=== PATIENT | female | born 1995 | race Caucasian/White ===

== ENCOUNTER 2019-11-16 17:13 | Emergency (ER) | payer SELFPAY ==
[2019-11-16 17:35] VITALS: BP 125/95; PULSE 100; RESP 18; TEMP 37.2; O2SAT 100; BMI 25.9
--- NOTE | 2019-11-16 17:53 | XRR_ITS ---
PROCEDURE INFORMATION: Exam: XR Chest, 1 View Exam date and time: 11/16/2019 5:55 PM Age: 24 years old Clinical indication: Cough and fever; Additional info: Sore throat, fever TECHNIQUE: Imaging protocol: XR of the chest Views: 1 view. COMPARISON: No relevant prior studies available. FINDINGS: Lungs: Unremarkable. No consolidation. Pleural space: Unremarkable. No pleural effusion. No pneumothorax. Heart/Mediastinum: Unremarkable. No cardiomegaly. Bones/joints: Unremarkable. XR/XR chest 1V portable [id number] IMPRESSION: No acute findings.
--- NOTE | 2019-11-16 17:56 | W.ED.GENADLT ---
HPI - General Adult General: Chief complaint: General Medical Stated complaint: eye pain, sore throat, fever Time Seen by Provider: 11/16/19 17:45 History of Present Illness: HPI narrative: Patient with history of fever up to 101 last couple days sore throat left eye redness and itching. Has had some night sweats and body aches in the evening. 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 Been doing this delivery last couple weeks at least. Has a history of eye allergies in the past and seasonal allergies. Has been treated for high blood pressure during . Not currently on medications MD complaint: Flulike symptoms. Eye allergy Onset (ago): day(s) Location: eyes Severity: mild Quality: other (Itching left eye) Associated symptoms: Reports fevers/chills and malaise; Deny chest pain, dyspnea, headache(s), nausea, rash or vomiting Review of Systems Const: Reports: fever and malaise Eyes: Reports: eye redness (Left with clear discharge and itching); Denies: change in vision or blurry vision ENMT: Denies: throat pain or nasal congestion Card: Denies: chest pain or shortness of breath on exertion Resp: Denies: shortness of breath, productive cough or non-productive cough GI: Denies: abdominal pain, nausea or vomiting Musc: Reports: extremity pain (Muscle aches) Skin/Breast: Denies: rash Neuro: Denies: headache Psych: Denies: anxiety or depression Epifanio/Lymph: Denies: easy bruising PFSH ED PFSH: Social History Smoking and tobacco status: never smoked Physical Exam Const: COMMON NORMALS: no apparent distress, average body habitus and oriented x3 HENMT: COMMON NORMALS: normocephalic HEAD & SCALP: normal to inspection and normocephalic FACE & SINUS: normal facial exam Eye: GENERAL EYE: normal appearance of both eyes CONJUNCTIVA: Yes conjunctiva abnormal positive left conjunctival injection Neck/C-Spine: COMMON NORMALS: no JVD Chest: COMMONS NORMALS: inspection of chest normal Resp: COMMON NORMALS: normal respiratory effort and clear to auscultation bilaterally AUSCULTATION: clear to auscultation bilaterally Cardio: COMMON NORMALS: no JVD, regular rate and regular rhythm RATE: regular rate RHYTHM: regular rhythm GI: COMMON NORMALS: normal to inspection, nondistended, normoactive bowel sounds Extremity: COMMON NORMALS: normal to inspection and full ROM Neuro: COMMON NORMALS: oriented x3 Course Vital Signs: Vital signs: Vital Signs Temperature 98.9 F 11/16/19 17:35 Pulse Rate 100 11/16/19 17:35 Respiratory Rate 18 11/16/19 17:35 Blood Pressure 125/95 11/16/19 17:35 Pulse Oximetry 100 11/16/19 17:35 [facility] - General Adult Lab Data: Labs: Lab Results 11/16/19 Range/Units 18:13 WBC 9.0 (4.0-10.0) 10^3/ uL RBC 4.34 (4.1-5.3) 10^6/u L Hgb 12.2 (11.5-15.3) g/dL Hct 39.1 (37.0-47.0) % MCV 90.1 (81-99) fL MCH 28.1 (28.0-34.0) pg MCHC 31.2 (30.0-36.0) g/dL RDW 12.9 (12.1-15.1) % Plt Count 289 (130-400) 10^3/c mm MPV 9.2 (7.4-10.4) fL Neut % (Auto) 73.7 % Lymph % (Auto) 12.3 % [place] % (Auto) 12.5 % Eos % (Auto) 1.1 % Baso % (Auto) 0.2 % Neut # (Auto) 6.6 (1.8-7.7) 10^3/u L Lymph # (Auto) 1.1 (0.8-4.8) 10^3/u L [place] # (Auto) 1.1 H (0.2-0.9) 10^3/u L Eos # (Auto) 0.1 (0.0-0.8) 10^3/u L Baso # (Auto) 0.0 (0.0-0.1) 10^3/u L Nucleated RBC % (a uto) 0 % Nucleated RBCs # 0.0 /100WBC Discharge Plan Discharge Prescriptions: No Action No Known Home Medications RF: 0 Coding Level of Care Code ED 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
[2019-11-16] MEDS: prednisoLONE 1% Op Susp 5 mL Btl 1 DROP EYE-LEFT (18:15)
[2019-11-16 18:22] LABS: Basophils % 0.2 %; Eosinophils # 0.1 10^3/uL (0.0-0.8); Eosinophils % 1.1 %; Hematocrit 39.1 % (37.0-47.0); Hemoglobin 12.2 g/dL (11.5-15.3); Lymphocytes # 1.1 10^3/uL (0.8-4.8); Lymphocytes % 12.3 %; Mean Corpuscular HGB Conc 31.2 g/dL (30.0-36.0); Mean Corpuscular Hemoglobin 28.1 pg (28.0-34.0); Mean Corpuscular Volume 90.1 fL (81-99); Mean Platelet Volume 9.2 fL (7.4-10.4); Monocytes # 1.1 10^3/uL (0.2-0.9); Monocytes % 12.5 %; Neutrophils # 6.6 10^3/uL (1.8-7.7); Neutrophils % 73.7 %; Nucleated Red Blood Cells % 0 %; Platelet Count 289 10^3/cmm (130-400); Red Blood Count 4.34 10^6/uL (4.1-5.3); Red Cell Distribution Width 12.9 % (12.1-15.1)
[2019-11-16 18:46] LABS: Alanine Aminotransferase 15 U/L (0-33); Albumin Level 4.1 g/dL (3.5-5.2); Alkaline Phosphatase 66 IU/L (35-105); Anion Gap 14.8 (5-19); Aspartate Amino Transferase 16 U/L (0-32); Blood Urea Nitrogen 14 mg/dL (6-20); Calcium 9.3 mg/dL (8.5-10.5); Carbon Dioxide 25 mmol/L (22-29); Chloride 96 mmol/L (98-107); Globulin 3.6 g/dL (1.3-4.6); Glomerular Filtration Rate 120.8 mL/min (90-130); Glucose 89 mg/dL (65-115); Osmolality Calculated 270 mOsm/kg (285-295); Potassium 3.8 mmol/L (3.5-5.1); Sodium 132 mmol/L (136-145); Total Bilirubin 0.3 mg/dL (0.15-1.2); Total Protein 7.7 g/dL (6.6-8.7)
[2019-11-16 18:58] LABS: Influenza A by IFA Negative (Negative); Influenza B by IFA Negative (Negative)
--- NOTE | 2019-11-16 18:59 | PC.NURSE ---
REPORT RECEIVED FROM MERT MENA AND CARE TRANSFERRED TO MERT RANDLE
[2019-11-16 19:39] VITALS: BP 126/88; PULSE 106; RESP 16; O2SAT 97
== END 2019-11-16 19:35 | disposition home or self-care (01) ==
PROVIDERS: Emergency Provider Nurse Practitioner Family; Family Provider Family Medicine; PCP Family Medicine
DX: R50.9 Fever, unspecified (principal); J02.9 Acute pharyngitis, unspecified; H57.12 Ocular pain, left eye; H57.89 Other specified disorders of eye and adnexa; R53.81 Other malaise
CPT/HCPCS: 12345; 71045; 80053; 85025; 87635; 87804; 99282; 99283

== ENCOUNTER 2019-12-07 00:59 | Observation (INO) | payer SELFPAY ==
[2019-12-07] VITALS (24 sets, daily range): BP systolic 100–161; BP diastolic 49–84; PULSE 73–144; RESP 15–20; TEMP 36.6; O2SAT 85–100; BMI 27.4
--- NOTE | 2019-12-07 01:15 | XRR_ITS ---
PROCEDURE INFORMATION: Exam: XR Chest, 1 View Exam date and time: 12/07/2019 2:33 AM Age: 24 years old Clinical indication: Tachypnea; Additional info: Tachypnea and on 2l nasal cannula TECHNIQUE: Imaging protocol: XR of the chest Views: 1 view. COMPARISON: CR (CHEST, ) 11/16/2019 6:18 PM FINDINGS: Lungs: There are increased patchy and linear opacities present in the lower hemithoraces, left prominent than right likely representing atelectasis although infiltrates and basilar pneumonitis cannot be excluded. Pleural space: Unremarkable. No pleural effusion. No pneumothorax. Heart/Mediastinum: Unremarkable. No cardiomegaly. Bones/joints: Unremarkable. XR/XR chest 1V portable [id number] IMPRESSION: Increased patchy linear opacities in the lower hemithoraces, left more prominent than right suggests bilateral basilar atelectasis and/or pneumonitis
--- NOTE | 2019-12-07 01:15 | CTR_ITS ---
PROCEDURE INFORMATION: Exam: CT Head Without Contrast Exam date and time: 12/07/2019 1:17 AM Age: 24 years old Clinical indication: Other: Seizure; Additional info: Possible seizure TECHNIQUE: Imaging protocol: Computed tomography of the head without contrast. Total DLP: 812.57 mGy-cm Radiation optimization: All CT scans at this facility use at least one of these dose optimization techniques: automated exposure control; mA and/or kV adjustment per patient size (includes targeted exams where dose is matched to clinical indication); or iterative reconstruction. COMPARISON: No relevant prior studies available. FINDINGS: Brain: Normal. No hemorrhage. Unremarkable white matter. No mass effect. Ventricles: Normal. No ventriculomegaly. Bones/joints: Unremarkable. No acute fracture. Sinuses: Visualized sinuses are unremarkable. No fluid levels. Mastoid air cells: Visualized mastoid air cells are well aerated. Soft tissues: Unremarkable. CT/CT head wo con* [id number] IMPRESSION: No acute intracranial abnormality. Radiation Dose CTDIVOL = (mGy): DLP = 812.57 (mGy-cm)
[2019-12-07] MEDS: LORazepam 2 mg/mL INJ 1 mL (01:30)
[2019-12-07] MEDS: sodium chloride 0.9% 1,000 ML 999 ML IV (01:46)
[2019-12-07 01:47] LABS: Bacteria Urine TRACE; Bilirubin Urine Neg (NEGATIVE); Blood Urine Neg (Negative); Glucose Urine UA Norm (Normal); Ketones Urine Negative (Negative); Leukocyte Esterase Urine Negative (Negative); Nitrate Urine Negative (Negative); Protein Urine Neg (Negative); RBC Urine RARE /hpf (0-2); Squamous Epithelial Cell Urine 0-4 (0-5); Urine Appearance Clear (CLEAR); Urine Color Yellow (Yellow); Urobilinogen Urine Norm (Negative); WBC Urine RARE /hpf (0-5); pH Urine 5 (5-7)
--- NOTE | 2019-12-07 01:47 | PC.NURSE ---
seizure pads on bed when pt got to room
[2019-12-07 01:52] LABS: Amphetamines Screen Urine Negative (Negative); Barbiturates Screen Urine Negative (Negative); Benzodiazepines Screen Urine Negative (Negative); Cocaine Screen Urine Negative (Negative); Opiate Screen Urine Negative (Negative); PCP Screen Urine Negative (Negative); THC Screen Urine Negative (Negative)
[2019-12-07 01:53] LABS: ABG PCO2 41.5 mmHg (35-45); ABG PH Result 7.37 (7.35-7.45); Arterial Blood Gas Hematocrit 39.2 % (37-47); Base Excess ABG -1.7 mmol/L (-2.0-2.0); Blood Gas Sample Site Brachial, left; Blood Gas Sample Type Arterial; HCO3 ABG 23.7 mmol/L (22-26); Oxygen Device ROOM AIR; PO2 ABG 85.7 mmHg (80.0-100.0)
--- NOTE | 2019-12-07 02:06 | W.ED.SEIZURE ---
HPI - Seizure General: Chief Complaint: Seizure Stated Complaint: SEIZURE Time Seen by Provider: 12/07/19 01:01 History of Present Illness: Seizure History: Yes Place: Home Review of Systems General: Reports: ROS unobtainable due to mental status PFSH ED PFSH: Social History Smoking and tobacco status: unknown if ever smoked Physical Exam Const: GENERAL APPEARANCE: well developed HENMT: COMMON NORMALS: normocephalic, external ears normal and external nose normal HEAD & SCALP: normocephalic FACE & SINUS: normal facial exam NOSE: external nose normal and no nasal discharge EXTERNAL EAR: Yes external ears normal MOUTH: tongue normal TEETH & GINGIVA: no abnormal tooth and associated gingiva THROAT: posterior oropharynx normal; no peritonsillar mass Eye: COMMON NORMALS: PERRL, EOMs intact bilaterally and conjunctivae normal EYELID: eyelids normal CONJUNCTIVA: Yes conjunctivae normal PUPIL: Yes PERRL Neck/C-Spine: COMMON NORMALS: full ROM GENERAL: No tracheal deviation Chest: COMMONS NORMALS: inspection of chest normal CHEST: No tenderness Resp: COMMON NORMALS: clear to auscultation bilaterally EFFORT & INSPECTION: No tachypneic, No respiratory distress, No retractions, No uses accessory muscles and No tracheal deviation AUSCULTATION: clear to auscultation bilaterally, no rhonchi, no wheezes and lung sounds not diminished Cardio: COMMON NORMALS: regular rate and regular rhythm RATE: regular rate and tachycardic RHYTHM: regular rhythm HEART SOUNDS: no murmurs PERIPHERAL PULSES: radial pulses present GI: INSPECTION: No abdominal distension AUSCULTATION: No hyperactive bowel sounds and No hypoactive bowel sounds PALPATION: No guarding and No rigid PERCUSSION: no dullness to percussion and no tympanic to percussion Neuro: ROB COMA SCALE: document GCS findings Rob coma scale eye opening: Spontaneous [place] coma scale verbal response: None Rob coma scale motor response: Localising Rob coma scale total score: 10 CRANIAL NERVES: Yes CN normal except as noted MOTOR EXAM: muscle tone normal throughout and other (Symmetrical movements.) Psych: APPEARANCE: Yes grossly normal ACTIVITY/MOTOR BEHAVIOR: Yes restless SPEECH: Yes minimal MEMORY/COGNITION: Yes memory grossly impaired Skin: COMMON NORMALS: no rashes or lesions noted GENERAL SKIN EXAM: no rashes or lesions noted Course Consultations: Consultation #1: Gissell Vital Signs: Vital signs: Vital Signs Temperature 97.8 F 12/07/19 01:07 Pulse Rate 144 H 12/07/19 03:00 Respiratory Rate 16 12/07/19 02:09 Blood Pressure 100/49 12/07/19 04:15 Pulse Oximetry 95 12/07/19 04:15 MDM - Seizure MDM Narrative: Medical decision making narrative: 24-year-old female presents with altered mental status, seizure like activity after drinking vodka, and possibly smoking and illicit substance earlier. She received 2.5 mg of Versed in route to the hospital. She received 2 mg IV Ativan on her arrival here due to symptoms of rigidity, arching the back, rolling the eyes, and drawing extremities to the center. She has not exhibited these symptoms in quite some time. She has however been agitated, pulled out 3 IVs, and has not come back to baseline. Her alcohol level is only 114. Her head CT is negative. Her urinalysis is negative for infection, and UDS is negative. Her labs are otherwise benign. There are no oral lesions. She did not lose control of her bladder. She remained somewhat obtunded, but is maintaining her airway with good vital signs. Initially, she was very tachycardic in the 140s. Her heart rate is below 100 now. She gives symptoms and history indicative of a possible synthetic marijuana ingestion such as K2, but again has not come back to baseline. She will go to the ICU for further monitoring, treatment. She was given a loading dose of Keppra here in the ER. She does not, however, exhibit signs of status epilepticus. Lab Data: Labs: Lab Results 12/07/19 12/07/19 12/07/19 Range/Units 01:35 01:35 01:42 WBC (4.0-10.0) 10^3/ uL RBC (4.1-5.3) 10^6/u L Hgb (11.5-15.3) g/dL Hct (37.0-47.0) % MCV (81-99) fL MCH (28.0-34.0) pg MCHC (30.0-36.0) g/dL RDW (12.1-15.1) % Plt Count (130-400) 10^3/c mm MPV (7.4-10.4) fL Neut % (Auto) % Lymph % (Auto) % [place] % (Auto) % Eos % (Auto) % Baso % (Auto) % Neut # (Auto) (1.8-7.7) 10^3/u L Lymph # (Auto) (0.8-4.8) 10^3/u L [place] # (Auto) (0.2-0.9) 10^3/u L Eos # (Auto) (0.0-0.8) 10^3/u L Baso # (Auto) (0.0-0.1) 10^3/u L Nucleated RBC % (a uto) % Nucleated RBCs # /100WBC Specimen Type Arterial Sample Site Brachial, left ABG pH 7.37 (7.35-7.45) ABG pCO2 41.5 (35-45) mmHg ABG pO2 85.7 (80.0-100.0) mmH g ABG HCO3 23.7 (22-26) mmol/L ABG Base Excess -1.7 (-2.0-2.0) mmol/ L [place] Test N/a Hematocrit 39.2 (37-47) % O2 Delivery Device Room air Director Supply Chain ID [email or web address] Sodium (136-145) mmol/L Potassium (3.5-5.1) mmol/L Chloride (98-107) mmol/L Carbon Dioxide (22-29) mmol/L Anion Gap (5-19) BUN (6-20) mg/dL Creatinine (0.5-0.9) mg/dL GFR Calculation (90-130) mL/min Glucose (65-115) mg/dL Calculated Osmolal ity (285-295) mOsm/k g Calcium (8.5-10.5) mg/dL Phosphorus (2.5-4.5) mg/dL Magnesium (1.7-2.3) mg/dL Total Bilirubin (0.15-1.2) mg/dL AST (0-32) U/L ALT (0-33) U/L Alkaline Phosphata se (35-105) IU/L Creatine Kinase (26-192) U/L Total Protein (6.6-8.7) g/dL Albumin (3.5-5.2) g/dL Globulin (1.3-4.6) g/dL HCG, Qual (Negative) Urine Color Yellow (Yellow) Urine Appearance Clear (CLEAR) Urine pH 5 (5-7) Ur Specific Gravit y 1.010 (1.005-1.030) Urine Protein Neg (Negative) Urine Glucose (UA) Norm (Normal) Urine Ketones Negative (Negative) Urine Blood Neg (Negative) Urine Nitrate Negative (Negative) Urine Bilirubin Neg (NEGATIVE) Urine Urobilinogen Norm (Negative) mg/dL Ur Leukocyte Brittany ase Negative (Negative) Urine RBC Rare (0-2) /hpf Urine WBC Rare (0-5) /hpf Ur Squamous Epith Cells 0-4 H (0-5) Urine Bacteria Trace (NONE) Urine Opiates Scre en Negative (Negative) ng/mL Ur Barbiturates Sc reen Negative (Negative) ng/mL Ur Phencyclidine S crn Negative (Negative) ng/mL Ur Amphetamines Sc reen Negative (Negative) ng/mL U Benzodiazepines Scrn Negative (Negative) ng/mL Urine Cocaine Scre en Negative (Negative) ng/mL U Marijuana (THC) Screen Negative (Negative) ng/mL Ethyl Alcohol (0-10) mg/dL 12/07/19 12/07/19 12/07/19 Range/Units 02:05 02:05 02:05 WBC 6.6 (4.0-10.0) 10^3/ uL RBC 4.50 (4.1-5.3) 10^6/u L Hgb 12.6 (11.5-15.3) g/dL Hct 39.0 (37.0-47.0) % MCV 86.7 (81-99) fL MCH 28.0 (28.0-34.0) pg MCHC 32.3 (30.0-36.0) g/dL RDW 12.8 (12.1-15.1) % Plt Count 404 H (130-400) 10^3/c mm MPV 9.3 (7.4-10.4) fL Neut % (Auto) 62.5 % Lymph % (Auto) 28.5 % [place] % (Auto) 7.3 % Eos % (Auto) 1.2 % Baso % (Auto) 0.3 % Neut # (Auto) 4.1 (1.8-7.7) 10^3/u L Lymph # (Auto) 1.9 (0.8-4.8) 10^3/u L [place] # (Auto) 0.5 (0.2-0.9) 10^3/u L Eos # (Auto) 0.1 (0.0-0.8) 10^3/u L Baso # (Auto) 0.0 (0.0-0.1) 10^3/u L Nucleated RBC % (a uto) 0 % Nucleated RBCs # 0.0 /100WBC Specimen Type Sample Site ABG pH (7.35-7.45) ABG pCO2 (35-45) mmHg ABG pO2 (80.0-100.0) mmH g ABG HCO3 (22-26) mmol/L ABG Base Excess (-2.0-2.0) mmol/ L [place] Test Hematocrit (37-47) % O2 Delivery Device Director Supply Chain ID Sodium 138 (136-145) mmol/L Potassium 3.7 (3.5-5.1) mmol/L Chloride 101 (98-107) mmol/L Carbon Dioxide 24 (22-29) mmol/L Anion Gap 16.7 (5-19) BUN 11 (6-20) mg/dL Creatinine 0.6 (0.5-0.9) mg/dL GFR Calculation 120.8 (90-130) mL/min Glucose 113 (65-115) mg/dL Calculated Osmolal ity 283 L (285-295) mOsm/k g Calcium 9.1 (8.5-10.5) mg/dL Phosphorus 3.5 (2.5-4.5) mg/dL Magnesium 2.0 (1.7-2.3) mg/dL Total Bilirubin 0.2 (0.15-1.2) mg/dL AST 20 (0-32) U/L ALT 11 (0-33) U/L Alkaline Phosphata se 67 (35-105) IU/L Creatine Kinase 151 (26-192) U/L Total Protein 8.0 (6.6-8.7) g/dL Albumin 4.6 (3.5-5.2) g/dL Globulin 3.4 (1.3-4.6) g/dL HCG, Qual Negative (Negative) Urine Color (Yellow) Urine Appearance (CLEAR) Urine pH (5-7) Ur Specific Gravit y (1.005-1.030) Urine Protein (Negative) Urine Glucose (UA) (Normal) Urine Ketones (Negative) Urine Blood (Negative) Urine Nitrate (Negative) Urine Bilirubin (NEGATIVE) Urine Urobilinogen (Negative) mg/dL Ur Leukocyte Brittany ase (Negative) Urine RBC (0-2) /hpf Urine WBC (0-5) /hpf Ur Squamous Epith Cells (0-5) Urine Bacteria (NONE) Urine Opiates Scre en (Negative) ng/mL Ur Barbiturates Sc reen (Negative) ng/mL Ur Phencyclidine S crn (Negative) ng/mL Ur Amphetamines Sc reen (Negative) ng/mL U Benzodiazepines Scrn (Negative) ng/mL Urine Cocaine Scre en (Negative) ng/mL U Marijuana (THC) Screen (Negative) ng/mL Ethyl Alcohol 114 H (0-10) mg/dL Discharge Plan Discharge Prescriptions: No Action No Known Home Medications RF: 0 Coding Level of Care Code ED 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
[2019-12-07 02:14] LABS: Basophils % 0.3 %; Eosinophils # 0.1 10^3/uL (0.0-0.8); Eosinophils % 1.2 %; Hemoglobin 12.6 g/dL (11.5-15.3); Lymphocytes # 1.9 10^3/uL (0.8-4.8); Lymphocytes % 28.5 %; Mean Corpuscular HGB Conc 32.3 g/dL (30.0-36.0); Mean Corpuscular Volume 86.7 fL (81-99); Mean Platelet Volume 9.3 fL (7.4-10.4); Monocytes # 0.5 10^3/uL (0.2-0.9); Monocytes % 7.3 %; Neutrophils # 4.1 10^3/uL (1.8-7.7); Neutrophils % 62.5 %; Nucleated Red Blood Cells % 0 %; Platelet Count 404 10^3/cmm (130-400); Red Cell Distribution Width 12.8 % (12.1-15.1); White Blood Count 6.6 10^3/uL (4.0-10.0)
[2019-12-07 02:22] LABS: HCG, Serum Qual Negative (Negative)
[2019-12-07 02:28] LABS: Alanine Aminotransferase 11 U/L (0-33); Albumin Level 4.6 g/dL (3.5-5.2); Alcohol Level 114 mg/dL (0-10); Alkaline Phosphatase 67 IU/L (35-105); Anion Gap 16.7 (5-19); Aspartate Amino Transferase 20 U/L (0-32); Blood Urea Nitrogen 11 mg/dL (6-20); Calcium 9.1 mg/dL (8.5-10.5); Carbon Dioxide 24 mmol/L (22-29); Chloride 101 mmol/L (98-107); Creatine Phosphokinase 151 U/L (26-192); Globulin 3.4 g/dL (1.3-4.6); Glomerular Filtration Rate 120.8 mL/min (90-130); Glucose 113 mg/dL (65-115); Osmolality Calculated 283 mOsm/kg (285-295); Phosphorus 3.5 mg/dL (2.5-4.5); Potassium 3.7 mmol/L (3.5-5.1); Sodium 138 mmol/L (136-145); Total Bilirubin 0.2 mg/dL (0.15-1.2)
[2019-12-07] MEDS: haloperidol inj 5 mg/mL INJ 1 mL 3 MG IVP (03:15)
--- NOTE | 2019-12-07 03:23 | PC.NURSE ---
Pt got out of bed at 0310 and pulled her IVs and headed for the bathroom saying she needed to pee. Pt is confused and disoriented. Pt was assisted to restroom per hospital staff and then walked back to bed and IV sites bandaged. came to room to talk with pt and she layed back down and is not responding again. Pt has a GCS of 10 at this time.pt given haldol and keppra loading dose at this time
--- NOTE | 2019-12-07 04:42 | P.HP_ITS ---
Providers/Chief Complaint Primary Care Provider: Ania Verma MD Chief Complaint: SEIZURE History of Present Illness Manju Morales is a 24 year old female with a past medical history of eclampsia, seizure disorder not on medications, alcohol abuse, who presents to the emergency room due to complaints of seizures. Most of the history was obtained from secondhand accounts, by EMS, ER physician, patient's boyfriend sister, patient is currently in the ER, sleepy, drowsy, arousable at times. Patient's boyfriend was intoxicated, and cannot provide a history. I spoke to patient's boyfriend sister, who stated that tonight the they were doing drinking together, she had vodka out, apparently she took a hit from her boyfriend's joint, and soon after she started seizing, with generalized seizing, tonic- clonic seizing, lasting a few seconds, and then after she would go limp, would have postictal confusion, would not be fully arousable, she had roughly 4 episodes of this, before EMS were called. Patient's boyfriend thought she might of had a cardiac event, so he gave a couple of rounds of chest compressions, before he stopped. Patient received 2.5 mg Versed in route to the hospital. She also received 2 mg Ativan on arrival here, has symptoms of rigidity, arching her back, rolling of her eyes, drawing her extremities to center. She then became agitated, actually pulled out 3 IVs, was able to walk down the hallways, asked where she was, use the bathroom, was able to answer questions at times. She was escorted back to her bed, she received Keppra, and Haldol, and then became a bit more obtunded. She did have intermittent episodes of tachycardia, heart rates in the 140s, but is come down to the 100s. She is maintaining her airways, saturating addition in the high 90s without using oxygen. Currently normotensive. She is received fluid boluses. Currently patient is in the ER, she did open her eyes to sternal rub, but when really arouse, she will toss and turn her head, open her eyes, her eyes are rolled back, bloodshot, reactive, does withdraw from pain, no muscle rigidity, no tongue biting, no urinary or bowel incontinence, no fevers, currently not tachycardic. Patient's blood alcohol level was 114. Urine drug screen was negative. The UA and chest x-ray were relatively unremarkable for pneumonia or UTI. She was here on 15 November for concerns for fevers, she did have negative COVID testing. Review of Systems General: Reports: ROS unobtainable due to mental status Medications/Allergies Allergies Allergy/AdvReac Type Severity Reaction Status Date / Time No Known Allergies Allergy Verified 11/16/19 17:39 PFSH Acute PFSH: Social History Smoking and tobacco status: unknown if ever smoked Vitals/I&O/Wt Last Vital Signs Temp 97.8 F 12/07/19 01:07 Pulse 144 H 12/07/19 03:00 Resp 16 12/07/19 02:09 BP 100/49 12/07/19 04:15 Pulse Ox 95 12/07/19 04:15 12/06/19 12/06/19 12/07/19 14:59 22:59 06:59 Intake Total 1107.5 / 1107.5 Balance 1107.5 / 1107.5 Weight last 48 hrs Weight 72.575 kg Physical Exam Narrative: EXAM NARRATIVE: gcs10, very drowsy, just toss and turn her head, does open her eyes, does not respond to commands, does open her eyes to sternal rub Const: COMMON NORMALS: no apparent distress GENERAL APPEARANCE: cooperative HENMT: COMMON NORMALS: normocephalic HEAD & SCALP: normocephalic Eye: COMMON NORMALS: PERRL GENERAL EYE: normal appearance of both eyes PUPIL: Yes PERRL Neck/C-Spine: COMMON NORMALS: full ROM, no lymphadenopathy, no JVD and thyroid normal THYROID: thyroid normal Lymph: LYMPHATIC: no lymphadenopathy noted Resp: COMMON NORMALS: normal respiratory effort, no retractions, no use of accessory muscles and clear to auscultation bilaterally AUSCULTATION: clear to auscultation bilaterally Cardio: COMMON NORMALS: no JVD, regular rate, regular rhythm, S1 normal heart sound, S2 normal heart sound, no gallops, no clicks and no murmurs RATE: regular rate RHYTHM: regular rhythm HEART SOUNDS: S1 normal and S2 normal GI: COMMON NORMALS: normal to inspection, nondistended, normoactive bowel sounds, soft to palpation, non-tender and no hepatosplenomegaly PALPATION: Yes soft and Yes no hepatosplenomegaly Extremity: COMMON NORMALS: normal to inspection, full ROM and no pedal edema Data : 12/07/19 02:05 12/07/19 02:05 A&P Assessment and plan (1) Tonic-clonic generalized seizure: -Received loading dose of Keppra in the ER -CT head negative for intracranial bleed -Blood work unremarkable, and drug screen unremarkable, chest x-ray within n ormal limits -She was tested for covid 19, in November 15, was negative -She has a previous history of seizures, not on medications -Does have a history of eclampsia Plan: -Continue Keppra 500 mg IV twice daily, neurochecks, seizure precautions aspiration precautions -IV hydration Status: Acute (2) Alcohol intoxication: -Patient does have a previous ER visit back in 2018 which is quite similar, concerns for seizure, alcohol intoxication was able to be discharged on the ER -Her urine drug screen was negative, blood alcohol level 114 -She did have a shot from a joint, possibly synthetic drug such as K2 -CIWA score, banana bag, neurochecks, aspiration precautions, serum drug screen Status: Acute Attestations Medical Necessity Statement*: Patient requires hospitalization, outpatient with observation, for seizures, alcohol intoxication Coding Level of Care Code Acute Catering And Events Manager for Lisa Lancaster Diagnoses Tonic-clonic generalized seizure G40.409 Alcohol intoxication F10.929
[2019-12-07] MEDS: sodium chloride 0.9% 1,000 ML 100 ML IV (05:31)
[2019-12-07] MEDS: folic acid 1 MG, multivitamin inj 10 ML, thiamine 100 MG in sodium chloride 0.9% 1,000 ML 252.8 MG IV (05:31)
[2019-12-07 06:16] LABS: Thyroid Stimulating Hormone 1.53 uIU/mL (0.27-4.20)
--- NOTE | 2019-12-07 11:30 | PM.DCS ---
Discharge Providers Date of Admission: 12/07/19 04:31 Date of Discharge: December 07, 2019 Attending Provider at Admission: Geovany Borrero MD Attending Provider at Discharge: Isrrael Louis Primary Care Provider: Ania Verma MD Diagnoses at Discharge Discharge Diagnosis (1) Tonic-clonic generalized seizure: Status: Acute (2) Alcohol intoxication: Status: Acute Reason for Visit Reason for Visit: Reason For Visit: SEIZURE Hospital Course Discharge Summary: The patient was admitted last night due to generalized tonic-clonic seizures which he experienced while intoxicated with alcohol and after smoking pot. She does have history of seizures in the past, but currently not on any treatments. She is started on Keppra here. Prescription is provided. She is also provided with a referral to see Dr. Jeffers. Additional testing might be necessary. No driving instructions are provided. She verbalized understanding and agreement. She was also instructed to come back to emergency room if she develops any new seizures or any other new complaints. Physical Exam Narrative: EXAM NARRATIVE: This morning she is awake alert and oriented. No acute distress. Mood and affect are appropriate. No tremors. Denies any pain. No fever or chills. No nausea or vomiting. She is eager to go home. Awake alert oriented. No acute distress. Mood and affect are appropriate. Skin warm and dry. Moist mucous membranes. Eyes PERRLA, extraocular muscles intact. Neck no JVD. Supple. Lungs clear to auscultation bilaterally. No respiratory distress Heart S1, S2, regular Abdomen soft, nontender, bowel sounds are present Extremities no edema cyanosis or calf tenderness bilaterally Normal speech. No focal weakness. The exam is performed in the presence of the nurse. Discharge Data Data Completed and Pending: Completed Studies During Hospitalization Category Date Time Status CT head wo con* [id number] Urgent Cat Scan 12/07/19 01:15 Completed XR chest 1V guera ble [id number] Stat Exams 12/07/19 01:15 Completed Pending at discharge Category Date Time Status Complete Blood Co unt w/Auto AM LABS Lab 12/08/19 04:00 Ordered Complete Blood Co unt w/Auto AM LABS Lab 12/09/19 04:00 Ordered Complete Blood Co unt w/Auto AM LABS Lab 12/10/19 04:00 Ordered Comprehensive Met abolic Panel AM LA BS Lab 12/08/19 04:00 Ordered Comprehensive Met abolic Panel AM LA BS Lab 12/09/19 04:00 Ordered Comprehensive Met abolic Panel AM LA BS Lab 12/10/19 04:00 Ordered Magnesium AM LABS Lab 12/08/19 04:00 Ordered Magnesium AM LABS Lab 12/09/19 04:00 Ordered Magnesium AM LABS Lab 12/10/19 04:00 Ordered Phosphorus AM LAB S Lab 12/08/19 04:00 Ordered Phosphorus AM LAB S Lab 12/09/19 04:00 Ordered Phosphorus AM LAB S Lab 12/10/19 04:00 Ordered Serum Drug Panel 7 Stat Lab 12/07/19 06:13 Received Labs from last 24 hours 12/07/19 12/07/19 12/07/19 02:05 02:05 02:05 WBC RBC Hgb Hct MCV MCH MCHC RDW Plt Count MPV Neut % (Auto) Lymph % (Auto) [place] % (Auto) Eos % (Auto) Baso % (Auto) Neut # (Auto) Lymph # (Auto) [place] # (Auto) Eos # (Auto) Baso # (Auto) Nucleated RBC % (a uto) Nucleated RBCs # Specimen Type Sample Site ABG pH ABG pCO2 ABG pO2 ABG HCO3 ABG Base Excess [place] Test Hematocrit O2 Delivery Device Manager Of Engineering ID Sodium 138 Potassium 3.7 Chloride 101 Carbon Dioxide 24 Anion Gap 16.7 BUN 11 Creatinine 0.6 GFR Calculation 120.8 Glucose 113 Calculated Osmolal ity 283 L Calcium 9.1 Phosphorus 3.5 Magnesium 2.0 Total Bilirubin 0.2 AST 20 ALT 11 Alkaline Phosphata se 67 Creatine Kinase 151 Total Protein 8.0 Albumin 4.6 Globulin 3.4 TSH 1.53 HCG, Qual Negative Urine Color Urine Appearance Urine pH Ur Specific Gravit y Urine Protein Urine Glucose (UA) Urine Ketones Urine Blood Urine Nitrate Urine Bilirubin Urine Urobilinogen Ur Leukocyte Brittany ase Urine RBC Urine WBC Ur Squamous Epith Cells Urine Bacteria Urine Opiates Scre en Ur Barbiturates Sc reen Ur Phencyclidine S crn Ur Amphetamines Sc reen U Benzodiazepines Scrn Urine Cocaine Scre en U Marijuana (THC) Screen Ethyl Alcohol 114 H 12/07/19 12/07/19 12/07/19 02:05 01:42 01:35 WBC 6.6 RBC 4.50 Hgb 12.6 Hct 39.0 MCV 86.7 MCH 28.0 MCHC 32.3 RDW 12.8 Plt Count 404 H MPV 9.3 Neut % (Auto) 62.5 Lymph % (Auto) 28.5 [place] % (Auto) 7.3 Eos % (Auto) 1.2 Baso % (Auto) 0.3 Neut # (Auto) 4.1 Lymph # (Auto) 1.9 [place] # (Auto) 0.5 Eos # (Auto) 0.1 Baso # (Auto) 0.0 Nucleated RBC % (a uto) 0 Nucleated RBCs # 0.0 Specimen Type Arterial Sample Site Brachial, left ABG pH 7.37 ABG pCO2 41.5 ABG pO2 85.7 ABG HCO3 23.7 ABG Base Excess -1.7 [place] Test N/a Hematocrit 39.2 O2 Delivery Device Room air Manager Of Engineering ID [email or web address] Sodium Potassium Chloride Carbon Dioxide Anion Gap BUN Creatinine GFR Calculation Glucose Calculated Osmolal ity Calcium Phosphorus Magnesium Total Bilirubin AST ALT Alkaline Phosphata se Creatine Kinase Total Protein Albumin Globulin TSH HCG, Qual Urine Color Urine Appearance Urine pH Ur Specific Gravit y Urine Protein Urine Glucose (UA) Urine Ketones Urine Blood Urine Nitrate Urine Bilirubin Urine Urobilinogen Ur Leukocyte Brittany ase Urine RBC Urine WBC Ur Squamous Epith Cells Urine Bacteria Urine Opiates Scre en Negative Ur Barbiturates Sc reen Negative Ur Phencyclidine S crn Negative Ur Amphetamines Sc reen Negative U Benzodiazepines Scrn Negative Urine Cocaine Scre en Negative U Marijuana (THC) Screen Negative Ethyl Alcohol 12/07/19 01:35 WBC RBC Hgb Hct MCV MCH MCHC RDW Plt Count MPV Neut % (Auto) Lymph % (Auto) [place] % (Auto) Eos % (Auto) Baso % (Auto) Neut # (Auto) Lymph # (Auto) [place] # (Auto) Eos # (Auto) Baso # (Auto) Nucleated RBC % (a uto) Nucleated RBCs # Specimen Type Sample Site ABG pH ABG pCO2 ABG pO2 ABG HCO3 ABG Base Excess [place] Test Hematocrit O2 Delivery Device Manager Of Engineering ID Sodium Potassium Chloride Carbon Dioxide Anion Gap BUN Creatinine GFR Calculation Glucose Calculated Osmolal ity Calcium Phosphorus Magnesium Total Bilirubin AST ALT Alkaline Phosphata se Creatine Kinase Total Protein Albumin Globulin TSH HCG, Qual Urine Color Yellow Urine Appearance Clear Urine pH 5 Ur Specific Gravit y 1.010 Urine Protein Neg Urine Glucose (UA) Norm Urine Ketones Negative Urine Blood Neg Urine Nitrate Negative Urine Bilirubin Neg Urine Urobilinogen Norm Ur Leukocyte Brittany ase Negative Urine RBC Rare Urine WBC Rare Ur Squamous Epith Cells 0-4 H Urine Bacteria Trace Urine Opiates Scre en Ur Barbiturates Sc reen Ur Phencyclidine S crn Ur Amphetamines Sc reen U Benzodiazepines Scrn Urine Cocaine Scre en U Marijuana (THC) Screen Ethyl Alcohol Vitals: Last Vital Signs Temp 97.9 F 12/07/19 08:56 Pulse 73 12/07/19 10:47 Resp 15 12/07/19 08:00 BP 117/53 12/07/19 08:00 Pulse Ox 95 12/07/19 10:47 Discharge Plan Discharge Patient Disposition: Home, Self-Care Condition: Stable Prescriptions: New levetiracetam 500 mg Tablet 500 mg PO BID Qty: 60 RF: 0 folic acid 1 mg Tablet 1 mg PO DAILY Qty: 30 RF: 0 Vitamin B-1 (mononitrate) 100 mg Tablet 100 mg PO DAILY Qty: 30 RF: 0 Thera 400 mcg Tablet 1 tab PO DAILY Qty: 30 RF: 0 Discharge Orders: Discharge Order (Routine); Ordered 12/07/19 Ordered By: Isrrael Louis Referrals: Joy Jeffers MD [Physician] - 4-7 days (seizures) Ania Verma MD [Primary Care Provider] - Discharge Diet: Usual diet Discharge Activity: Limit activity as instructed Patient Instructions: Alcohol Intoxication, Epilepsy (DC), Abuse of Alcohol (DC) Activity Restrictions/Additional Instructions: No driving, operating machinery, swimming or any other activities which can be potentially dangerous in case you have seizures until you are cleared by neurologist. Referral will be provided. Additional testing might be necessary. Please come back to emergency room if develop any new seizures or other complaints. Discharge Attestations Time Spent in Discharge Care*: less than 30 min Quality Metrics Clinical Quality Measures During this hospital stay, did patient experience: None Coding Level of Care Code Acute Equipment Sterilizer for Liorg Fwd Diagnoses Tonic-clonic generalized seizure G40.409 Alcohol intoxication F10.929
--- NOTE | 2019-12-07 11:47 | PC.NURSE ---
discharge medications [place] [facility] pharmacist called with concerns regarding folic acid 1mg being taken with Thera multivitamin. Dr. Louis notified and Folic Acid 1mg discontinued. updated patients discharge paperwork.
--- NOTE | 2019-12-07 11:59 | PC.NURSE ---
discharge nurse instructed patient, as well as her friend, Conrado, on discharge instructions. Including no driving, no operating heavy machinery, and no swimming, until cleared by neurologist. Patient verbalizes understanding to follow up appointments and new medications with possible side effects. IV removed at this time with cath intact and site is asymptomatic. Patient ambulated to family friends vehicle ,tolerated well.
[2019-12-12 11:07] LABS: Opiates negative; PCP (Phencyclidine) negative
== END 2019-12-07 12:12 | disposition home or self-care (01) ==
LOC: ER 01:27 → ICU 04:48
PROVIDERS: Physician Assistant; Admitting Provider Family Medicine; Emergency Provider Emergency Medicine; Family Provider Family Medicine; PCP Family Medicine; Visit Provider Internal Medicine
DX: G40.409 Other generalized epilepsy and epileptic syndromes, not intractable, without status epilepticus (principal); F10.929 Alcohol use, unspecified with intoxication, unspecified; Y90.5 Blood alcohol level of 100-119 mg/100 ml
CPT/HCPCS: 12345; 36415; 36600; 70450; 71045; 80053; 80306; 80307; 81001; 82550; 82803; 83735; 84100; 84443; 84703; 85025; 94664; 96361; 96365; 96372; 96374; 96375; 99284; 99285; A9270; G0378; J1630; J1953; J2060; J3411; J3490; J7030

== ENCOUNTER 2022-09-19 06:51 | Emergency (ER) | payer BC, MEDICAID, SELFPAY ==
[2022-09-19 07:00] VITALS: BP 126/68; PULSE 99; RESP 16; TEMP 36.7; O2SAT 96
--- NOTE | 2022-09-19 07:22 | W.ED.FEMALGU ---
HPI - Female Genitourinary General: Chief complaint: Urogenital-Female Stated complaint: urogenital Time Seen by Provider: 09/19/22 07:10 History of Present Illness: Patient is a 26-year-old female who comes to the ED with blood in the urine. Symptoms started earlier this morning. She describes urinating some this morning and it was mostly of bright red color. Since symptoms started this morning she constantly feels like she has to urinate but can only go a little bit. She has never had symptoms like this before. Urinating does not cause any pain or burning type sensation. Denies any fevers, chills, abdominal pain, nausea/vomiting. Patient denies any chance of being and has Mirena for control. Associated symptoms: Deny abdominal pain, headache(s) or nausea Review of Systems Const: Denies: fever(s), chills or fatigue Eyes: Denies: change in vision or eye discomfort ENMT: Denies: throat pain, odynophagia, nasal discharge or nasal congestion Card: Denies: chest pain, palpitations, edema, swelling of feet/ankles, dyspnea on exertion or orthopnea Resp: Denies: dyspnea, productive cough or non-productive cough GI: Denies: abdominal pain, nausea, vomiting, diarrhea, constipation or hematochezia : Reports: urinary frequency (Increased) and hematuria; Denies: flank pain or dysuria Musc: Denies: neck pain, back pain or extremity swelling Skin/Breast: Denies: rash or new lesions Neuro: Denies: headache(s), numbness in extremities or weakness in extremities [facility] ED PFSH: Medical History No pertinent family history Surgical History No pertinent past surgical history Social History Smoking and tobacco status: unknown if ever smoked Physical Exam Const: COMMON NORMALS: no acute distress, patient oriented x3, healthy appearing and alert GENERAL APPEARANCE: cooperative and comfortable HENMT: COMMON NORMALS: normocephalic HEAD & SCALP: normocephalic MOUTH: Normal oral and palatal mucosa present THROAT: posterior oropharynx normal and uvula midline Neck/C-Spine: COMMON NORMALS: supple GENERAL: Yes normal visual inspection Resp: COMMON NORMALS: normal respiratory effort, No retractions, No use of accessory muscles and clear to auscultation bilaterally AUSCULTATION: clear to auscultation bilaterally Cardio: COMMON NORMALS: regular rate, regular rhythm, S1 normal heart sound present, S2 normal heart sound present, No gallops present (Cardio), No clicks present (Cardio), No murmurs present (Cardio) and Peripheral pulses 2+ throughout RATE: regular rate RHYTHM: regular rhythm HEART SOUNDS: S1 normal heart sound present and S2 normal heart sound present PERIPHERAL PULSES: Peripheral pulses 2+ throughout GI: COMMON NORMALS: Normal to inspection, nondistended, normoactive bowel sounds present, Soft to palpation, non-tender and no masses PALPATION: Yes Soft to palpation and Yes Bladder palpation abnormal (Bladder is not distended upon exam) : COMMON NORMALS: Yes no CVA tenderness BLADDER/KIDNEY EXAM: Yes no CVA tenderness and Yes Bladder palpation abnormal (Bladder is not distended upon exam) Bladder abnormal details: tender (Mild tenderness); Negative for distended midway to the umbilicus or distended to the umbilicus Back/Pelvis: COMMON NORMALS: no CVA tenderness Extremity: COMMON NORMALS: normal to inspection Neuro: COMMON NORMALS: patient oriented x3 SENSORIUM/ORIENTATION: Yes alert GAIT: Yes Normal gait present Skin: GENERAL SKIN EXAM: dry skin Course ED course: Nurse performed bladder scan and only 2 mL were found in the bladder. Vital Signs: Vital signs: Vital Signs Temperature 98.1 F 09/19/22 07:00 Pulse Rate 67 09/19/22 08:10 Respiratory Rate 16 09/19/22 08:10 Blood Pressure 114/80 09/19/22 08:10 Pulse Oximetry 100 09/19/22 08:10 Oxygen Delivery Wi thod 09/19/22 07:00 [facility] - Female Medical Decision Making Patient is a 26-year-old female who comes to the ED with blood in the urine. Symptoms started earlier this morning. She describes urinating some this morning and it was mostly of bright red color. Since symptoms started this morning she constantly feels like she has to urinate but can only go a little bit. She has never had symptoms like this before. Urinating does not cause any pain or burning type sensation. Denies any fevers, chills, abdominal pain, nausea/vomiting. Vitals are stable. Patient appears nontoxic in no acute distress or pain. She has some mild tenderness to palpation of bladder but bladder does not appear distended. Rest of exam is benign. Nurse performed bladder scan and only 2 mL were found in the bladder. UA shows bacteria and numerous white blood cells and red blood cells. Urine hCG negative. Given patient's symptoms, physical exam and UA report patient has a UTI. She was discharged home with a prescription for Bactrim. Told to follow-up with PCP in the next week for reevaluation. Patient understood agree with plan. Lab Data I reviewed the patient's lab results. Laboratory Results Urine Color Red (Yellow) 09/19/22 07:18 Urine Appearance Hazy (CLEAR) A 09/19/22 07:18 Urine pH 5 (5-7) 09/19/22 07:18 Ur Specific [place] 1.020 (1.005-1.030) 09/19/22 07:18 Urine Protein 2+ (Negative) H 09/19/22 07:18 Urine Glucose (UA) Norm (Normal) 09/19/22 07:18 Urine Ketones Negative (Negative) 09/19/22 07:18 Urine Blood 3+ (Negative) H 09/19/22 07:18 Urine Nitrate Negative (Negative) 09/19/22 07:18 Urine Bilirubin Neg (Negative) 09/19/22 07:18 Urine Urobilinogen Norm mg/dL (Negative) 09/19/22 07:18 Ur Leukocyte Esterase 2+ (Negative) H 09/19/22 07:18 Urine RBC Too numerous to cnt /hpf (0-2) H 09/19/22 07:18 Urine WBC Too numerous to cnt /hpf (0-5) H 09/19/22 07:18 Ur Squamous Epith Cells Rare /hpf (0-5) 09/19/22 07:18 Amorphous Sediment Not Reportable 09/19/22 07:18 Urine Bacteria 2+ /hpf (NONE) H 09/19/22 07:18 Urine HCG, Qual Negative (Negative) 09/19/22 07:18 Discharge Plan Discharge Patient Disposition: Home Clinical Impression: UTI (urinary tract infection) Qualifiers: Urinary tract infection type: acute cystitis Hematuria presence: with hematuria Qualified Code(s): N30.01 - Acute cystitis with hematuria Condition: Stable Prescriptions: New Bactrim DS 800-160 mg tablet 1 tab PO BID 5 Days Qty: 10 0RF No Action levetiracetam 500 mg Tablet 500 mg PO BID Qty: 60 0RF folic acid 1 mg Tablet 1 mg PO DAILY Qty: 30 0RF Vitamin B-1 (mononitrate) 100 mg Tablet 100 mg PO DAILY Qty: 30 0RF Thera 400 mcg Tablet 1 tab PO DAILY Qty: 30 0RF Discharge Orders: Discharge ED (Routine); Ordered 09/19/22 Ordered By: Ajay Roach Discharge Diet: Regular Discharge Activity: Resume usual activity Patient Instructions: Urinary Tract Infection in Women (DC) Activity Restrictions/Additional Instructions: Follow-up with medical provider as directed in the next 5 to 7 days for reevaluation. Drink plenty of water to help flush out UTI. Take medications as prescribed. Return to the ER or your medical provider if condition worsens. Please read and understand discharge instructions. Thank you for choosing [facility] for your healthcare needs today. Please realize this is an emergency room and that we are providing you with a medical screening exam and this may not be complete and all inclusive of all the testing and or work up that you may need to determine your ailment or severity of your illness. It is very important that you follow up as instructed or that you return to the Emergency Department should you have concerns or if your condition changes or worsens in any way. Coding Level of Care Code ED Supervisor Enrobing for Lisa Lancaster Exam Comprehensive
[2022-09-19 07:50] LABS: Urine Appearance Hazy (CLEAR); Urine Color Red (Yellow); pH Urine 5 (5-7)
[2022-09-19 07:51] LABS: Add Urine Culture? Yes; Add Urine Microscopic? YES; Bacteria Urine 2+ /hpf; Bilirubin Urine Neg (Negative); Blood Urine 3+ (Negative); Glucose Urine UA Norm (Normal); Ketones Urine Negative (Negative); Leukocyte Esterase Urine 2+ (Negative); Nitrate Urine Negative (Negative); Protein Urine 2+ (Negative); RBC Urine TOO NUMEROUS TO CNT /hpf (0-2); Squamous Epithelial Cell Urine RARE /hpf (0-5); Urobilinogen Urine Norm (Negative); WBC Urine TOO NUMEROUS TO CNT /hpf (0-5)
[2022-09-19 08:10] VITALS: BP 114/80; PULSE 67; RESP 16; O2SAT 100
== END 2022-09-19 08:13 | disposition home or self-care (01) ==
PROVIDERS: Emergency Provider Physician Assistant
DX: N30.01 Acute cystitis with hematuria (principal)
CPT/HCPCS: 51798; 81001; 81025; 87077; 87086; 87186; 99283

== ENCOUNTER 2022-12-03 15:34 | Emergency (ER) | payer BC, MEDICAID, SELFPAY ==
[2022-12-03] VITALS (29 sets, daily range): BP systolic 101–142; BP diastolic 49–101; PULSE 60–118; RESP 16–26; TEMP 36.5; O2SAT 98–100; BMI 24.0
--- NOTE | 2022-12-03 15:43 | XRR_ITS ---
PROCEDURE INFORMATION: Exam: XR Chest Exam date and time: 12/03/2022 4:28 PM Age: 27 years old Clinical indication: Device placement; Other: Et and ng placement; Additional info: AMS TECHNIQUE: Imaging protocol: Radiologic exam of the chest. Views: 1 view. COMPARISON: CR XR chest 1V portable [id number] 12/07/2019 2:25 AM FINDINGS: Tubes, catheters and devices: Endotracheal tube tip in place 3.8 cm above the johnie. Enteric tube tip below the left diaphragm extending inferiorly off the field of view. Lungs: Unremarkable. No consolidation. Pleural spaces: Unremarkable. No pleural effusion. No pneumothorax. Heart/Mediastinum: Unremarkable. No cardiomegaly. Bones/joints: Unremarkable. XR/XR chest 1V portable [id number] IMPRESSION: 1. Endotracheal tube tip in place 3.8 cm above the johnie. 2. Enteric tube tip below the left diaphragm extending inferiorly off the field of view.
--- NOTE | 2022-12-03 15:43 | CTR_ITS ---
PROCEDURE INFORMATION: Exam: CT Head Without Contrast Exam date and time: 12/03/2022 5:18 PM Age: 27 years old Clinical indication: Other: Seizures/ams/unresponsive TECHNIQUE: Imaging protocol: Computed tomography of the head without contrast. Radiation optimization: All CT scans at this facility use at least one of these dose optimization techniques: automated exposure control; mA and/or kV adjustment per patient size (includes targeted exams where dose is matched to clinical indication); or iterative reconstruction. REPORTING DATA: Count of CT and Cardiac NM exams in prior 12 months: This patient has received 0 known CTs and 0 known cardiac nuclear medicine studies in the 12 months prior to the current study. COMPARISON: CT head wo con* [id number] 12/07/2019 2:19 AM RADIATION DOSE METRICS: Total DLP (mGy-cm): 1130.79 FINDINGS: Brain: Normal. No hemorrhage. Unremarkable white matter. No mass effect. Cerebral ventricles: No ventriculomegaly. Paranasal sinuses: Visualized sinuses are unremarkable other than very minimal mucosal thickening left maxillary sinus. No fluid levels. Mastoid air cells: Visualized mastoid air cells are well aerated. Bones/joints: Unremarkable. No acute fracture. Soft tissues: Unremarkable. CT/CT head wo con* [id number] IMPRESSION: No acute intracranial abnormality.
[2022-12-03] MEDS: propofol 1,000 MG/100 ML INJ 11.43 MG IV (15:44)
[2022-12-03 15:51] LABS: ABG PCO2 41.3 mmHg (35-45); ABG PH Result 7.41 (7.35-7.45); Arterial Blood Gas Hematocrit 40.9 % (37-47); Base Excess ABG 1.5 mmol/L (-2.0-2.0); Blood Gas Allen Test Pos; Blood Gas Operator Identificat WALCI; Blood Gas Sample Site Radial, right; Blood Gas Sample Type Arterial; HCO3 ABG 26.3 mmol/L (22-26); Oxygen Device VENT
[2022-12-03 16:03] LABS: Basophils % 0.3 %; Eosinophils # 0.2 10^3/uL (0.0-0.8); Eosinophils % 1.8 %; Hematocrit 39.3 % (37.0-47.0); Hemoglobin 12.8 g/dL (11.5-15.3); Lymphocytes # 3.1 10^3/uL (0.8-4.8); Lymphocytes % 32.9 %; Mean Corpuscular HGB Conc 32.6 g/dL (30.0-36.0); Mean Corpuscular Hemoglobin 29.3 pg (28.0-34.0); Mean Corpuscular Volume 89.9 fl (81-99); Mean Platelet Volume 9.3 fL (7.4-10.4); Monocytes # 0.8 10^3/uL (0.2-0.9); Monocytes % 8.8 %; Neutrophils # 5.34 10^3/uL (1.8-7.7); Nucleated Red Blood Cells % 0 %; Platelet Count 334 10^3/cmm (130-400); Red Blood Count 4.37 10^6/uL (4.1-5.3); White Blood Count 9.5 10^3/uL (4.0-10.0)
[2022-12-03 16:09] LABS: HCG Qualitative Urine. Negative (Negative)
[2022-12-03 16:17] LABS: Lactate (Lactic Acid level) 2.1 mmol/L (0.5-2.2)
[2022-12-03 16:24] LABS: Alanine Aminotransferase 20 U/L (0-33); Albumin Level 4.1 g/dL (3.5-5.2); Alkaline Phosphatase 58 U/L (35-105); Anion Gap 13.5 (5-19); Aspartate Amino Transferase 21 U/L (0-32); Blood Urea Nitrogen 14 mg/dL (6-20); Calcium 8.8 mg/dL (8.5-10.5); Carbon Dioxide 25 mmol/L (22-29); Chloride 103 mmol/L (98-107); Globulin 3.1 g/dL (1.3-4.6); Glomerular Filtration Rate 98.9 mL/min (90-130); Glucose 112 mg/dL (65-115); Osmolality Calculated 287 mOsm/kg (285-295); Potassium 3.5 mmol/L (3.5-5.1); Sodium 138 mmol/L (136-145); Thyroid Stimulating Hormone 0.71 uIU/mL (0.27-4.20); Total Bilirubin 0.4 mg/dL (0.15-1.2); Total Protein 7.2 g/dL (6.6-8.7)
[2022-12-03 16:33] LABS: Acetaminophen < 5.0 ug/mL (10-30); Alcohol Level < 10 mg/dL (0-10); Salicylate < 0.3 mg/dL (3-10)
--- NOTE | 2022-12-03 16:41 | ED_ITS ---
HPI - Seizure General: Chief Complaint: Seizure Stated Complaint: SEIZURES; UNRESPONSIVE Time Seen by Provider: 12/03/22 15:42 History of Present Illness: HPI Narrative: Patient is brought in by EMS intubated after having multiple seizures. Per EMS the patient's fianc? witnessed the patient having multiple episodes concerning for seizures. States she has a history of epilepsy but does not take her medications. When EMS arrived they noticed 3 seizure-like episodes as well. They were unable to break them with Versed and ended up intubating the patient giving her rocuronium and etomidate. Upon arrival here the patient was sedated and intubated. Seizure History: Yes Review of Systems General: Reports: ROS unobtainable due to endotracheal tube [facility] PFSH: Medical History No pertinent family history Surgical History No pertinent past surgical history Social History Smoking and tobacco status: unknown if ever smoked Physical Exam Const: COMMON NORMALS: healthy appearing HENMT: COMMON NORMALS: normocephalic and atraumatic HEAD & SCALP: normocephalic and atraumatic Eye: OTHER: Patient is intubated and sedated Neck/C-Spine: COMMON NORMALS: supple Resp: OTHER: Patient is intubated and ventilating without difficulty Cardio: COMMON NORMALS: regular rate and regular rhythm RATE: regular rate RHYTHM: regular rhythm GI: COMMON NORMALS: Normal to inspection, nondistended, normoactive bowel sounds present and Soft to palpation PALPATION: Yes Soft to palpation Extremity: COMMON NORMALS: normal to inspection Skin: COMMON NORMALS: no rashes or lesions noted and no wounds GENERAL SKIN EXAM: no rashes or lesions noted Course Vital Signs: Vital signs: Vital Signs Temperature 97.7 F 12/03/22 15:42 Pulse Rate 111 H 12/03/22 15:50 Respiratory Rate 16 12/03/22 17:29 Blood Pressure 132/101 12/03/22 15:50 Pulse Oximetry 100 12/03/22 15:50 Oxygen Delivery Me thod Mechanical Ventil ation 12/03/22 15:42 Fraction of Inspir ed Oxygen 35 12/03/22 17:29 MDM - Seizure MDM Narrative Medical decision making narrative: Patient is brought in by EMS intubated after having multiple seizures. Per EMS the patient's fianc? witnessed the patient having multiple episodes concerning for seizures. States she has a history of epilepsy but does not take her medications. When EMS arrived they noticed 3 seizure-like episodes as well. They were unable to break them with Versed and ended up intubating the patient giving her rocuronium and etomidate. Upon arrival here the patient was sedated and intubated. We will continue to sedate with propofol while we check labs, consult neurology, CT, x-ray, and reassess. On reassessment I talked to the patient's fianc? about the test results. I discussed the case with neurology who is seen the patient here in the emergency department. We do not have a EEG on the weekend here so I discussed the case with the neurologist at [facility], and we will transfer her for further work-up and treatment of her possible status epilepticus. Lab Data 12/03/22 15:40 12/03/22 15:40 Labs: Radiology Impressions Chest X-Ray 12/03/22 15:43 IMPRESSION: 1. Endotracheal tube tip in place 3.8 cm above the johnie. 2. Enteric tube tip below the left diaphragm extending inferiorly off the field of view. Laboratory Results WBC 9.5 10^3/uL (4.0-10.0) 12/03/22 15:40 RBC 4.37 10^6/uL (4.1-5.3) 12/03/22 15:40 Hgb 12.8 g/dL (11.5-15.3) 12/03/22 15:40 Hct 39.3 % (37.0-47.0) 12/03/22 15:40 MCV 89.9 fl (81-99) 12/03/22 15:40 MCH 29.3 pg (28.0-34.0) 12/03/22 15:40 MCHC 32.6 g/dL (30.0-36.0) 12/03/22 15:40 RDW 12.0 % (12.1-15.1) L 12/03/22 15:40 Plt Count 334 10^3/cmm (130-400) 12/03/22 15:40 MPV 9.3 fL (7.4-10.4) 12/03/22 15:40 Neut % (Auto) 56.0 % 12/03/22 15:40 Lymph % (Auto) 32.9 % 12/03/22 15:40 Kimble % (Auto) 8.8 % 12/03/22 15:40 Eos % (Auto) 1.8 % 12/03/22 15:40 Baso % (Auto) 0.3 % 12/03/22 15:40 Neut # (Auto) 5.34 10^3/uL (1.8-7.7) 12/03/22 15:40 Lymph # (Auto) 3.1 10^3/uL (0.8-4.8) 12/03/22 15:40 Kimble # (Auto) 0.8 10^3/uL (0.2-0.9) 12/03/22 15:40 Eos # (Auto) 0.2 10^3/uL (0.0-0.8) 12/03/22 15:40 Baso # (Auto) 0.0 10^3/uL (0.0-0.1) 12/03/22 15:40 Nucleated RBC % (auto) 0 % 12/03/22 15:40 Nucleated RBCs # 0.0 /100WBC 12/03/22 15:40 Specimen Type Arterial 12/03/22 15:40 Sample Site Radial, right 12/03/22 15:40 ABG pH 7.41 (7.35-7.45) 12/03/22 15:40 ABG pCO2 41.3 mmHg (35-45) 12/03/22 15:40 ABG pO2 331.0 mmHg (80.0-100.0) H 12/03/22 15:40 ABG HCO3 26.3 mmol/L (22-26) H 12/03/22 15:40 ABG Base Excess 1.5 mmol/L (-2.0-2.0) 12/03/22 15:40 Flaquito Test Pos 12/03/22 15:40 Hematocrit 40.9 % (37-47) 12/03/22 15:40 O2 Delivery Device Vent 12/03/22 15:40 FiO2 100.0 % 12/03/22 15:40 PEEP 5.0 cmH20 12/03/22 15:40 Exhaust Emissions Automotive Technician ID [facility] 12/03/22 15:40 Sodium 138 mmol/L (136-145) 12/03/22 15:40 Potassium 3.5 mmol/L (3.5-5.1) 12/03/22 15:40 Chloride 103 mmol/L (98-107) 12/03/22 15:40 Carbon Dioxide 25 mmol/L (22-29) 12/03/22 15:40 Anion Gap 13.5 (5-19) 12/03/22 15:40 BUN 14 mg/dL (6-20) 12/03/22 15:40 Creatinine 0.7 mg/dL (0.5-0.9) 12/03/22 15:40 GFR Calculation 98.9 mL/min (90-130) 12/03/22 15:40 Glucose 112 mg/dL (65-115) 12/03/22 15:40 Calculated Osmolality 287 mOsm/kg (285-295) 12/03/22 15:40 Lactate 2.1 mmol/L (0.5-2.2) 12/03/22 15:40 Calcium 8.8 mg/dL (8.5-10.5) 12/03/22 15:40 Magnesium 2.0 mg/dL (1.7-2.3) 12/03/22 15:40 Total Bilirubin 0.4 mg/dL (0.15-1.2) 12/03/22 15:40 AST 21 U/L (0-32) 12/03/22 15:40 ALT 20 U/L (0-33) 12/03/22 15:40 Alkaline Phosphatase 58 U/L (35-105) 12/03/22 15:40 Total Protein 7.2 g/dL (6.6-8.7) 12/03/22 15:40 Albumin 4.1 g/dL (3.5-5.2) 12/03/22 15:40 Globulin 3.1 g/dL (1.3-4.6) 12/03/22 15:40 TSH 0.71 uIU/mL (0.27-4.20) 12/03/22 15:40 HCG, Qual Negative (Negative) 12/03/22 15:40 Salicylates < 0.3 mg/dL (3-10) L 12/03/22 15:40 Acetaminophen < 5.0 ug/mL (10-30) L 12/03/22 15:40 Ethyl Alcohol < 10 mg/dL (0-10) 12/03/22 15:40 Critical Care Time Critical Care Time: Attestation: This case had a high probability of a clinically significant, sudden, or life threatening deterioration of this patient's condition which required my full and direct attention, intervention and personal management. Discharge Plan Discharge Patient Disposition: er Intermediate Care [facility] Clinical Impression: Epilepsy with status epilepticus Condition: Stable Prescriptions: No Action levetiracetam 500 mg Tablet 500 mg PO BID Qty: 60 0RF folic acid 1 mg Tablet 1 mg PO DAILY Qty: 30 0RF thiamine mononitrate (vit B1) [Vitamin B-1 (mononitrate)] 100 mg Tablet 100 mg PO DAILY Qty: 30 0RF multivitamin with folic acid [Thera] 400 mcg Tablet 1 tab PO DAILY Qty: 30 0RF Discharge Orders: Transfer Out of Facility (Order); Ordered 12/03/22 Ordered By: Zoran Law Referrals: Meenakshi Shelley FNP [Primary Care Provider] - Coding Level of Care Code ED 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
--- NOTE | 2022-12-03 17:45 | PM.CONSULT ---
Providers/Reason For Consult Consulting Physician/Specialty*: Jamie Barry MD specialty Neurology and Epilepsy Reason for Consult*: Status epilepticus in a 27-year-old female requiring intubation at her home by EMS Primary Care Provider: Meenakshi Shelley History of Present Illness History of Present Illness Manju Morales is a 27 year old female with a reported history of seizure episodes. According to the patient's fianc? who I spoke with in the parking lot at the emergency room this evening, he and the patient have been together for 5 years. According to the fianc?, the patient has occasional seizure episodes approximately 2 times per year. He stated that the last witnessed seizure by him was 4 years ago when they had their first child. Fianc? stated the patient was in pain during the delivery of their child and she was not given a epidural. He stated that the pain triggered one of the patient's seizures. He reports that the patient refused to take medications and has been noncompliant with her Keppra. According to the fianc?, the patient has not taken any of the medications prescribed byany of her physicians including the Keppra prescribed for her seizure episodes. According to the fianc?, the patient reported not feeling and felt very tired today. He stated that the patient complaining of chest pressure followed by gasping for air followed by taking a deep breath and then he witnessed the patient's eyes rolling up and crossing. He stated that then the patient let out a deep breath and then lost consciousness. The fianc? states the patient was not breathing for approximately 1 minute and therefore he started CPR. He reports being CPR certified. He stated that he opened the patient's mouth and attempted to give her a deep breath but her airway appeared to be closed. He stated that he started to attempt chest compressions and the patient displayed some generalized trembling/shaking shaking that was brief. He reported the patient had 2 more brief trembling/shaking of her entire body and then she stopped breathing again. He stated he resume giving the patient CPR and the patient open her eyes but would not respond. The fianc? stated that the EMS arrived and the patient displayed some tonic posturing of her torso with shaking/clonic activity of her extremities. The fianc? stated the patient had 3 episodes without regaining consciousness and therefore the patient was intubated at the scene by EMS. According to the [facility] emergency room, the patient was given a muscle paralytic and a benzodiazepine and brought to the emergency room. Neurology consult was requested by the ER physician and therefore presented to the emergency room. Upon arriving at the emergency room the patient was intubated in ER room 11 and fentanyl 25 mcg/h, Versed 4 mg/h and propofol 40 mEq/kg IV were being administered and propofol was being tapered. The patient did not appear to be displaying any obvious clinical seizures but the hospital is not equipped with continuous video EEG monitoring and therefore EEG recordings could not be obtained. Noncontrast head CT was ordered but unable to be performed since the patient was reported to be agitated and pulling at the ET tube. When I entered the room the patient was quiet and moving her arms and legs spontaneously. There was no obvious signs of any focal weakness and her pupils were 3 mm bilaterally and reactive. There were no nystagmus or any eye fluttering. Vital signs were stable. ABGs revealed elevated oxygen saturation there was no signs of any anoxia and her metabolic lab was all unrevealing. I spoke with the attending physician caring for the patient in the emergency room and I recommended giving the patient IV Keppra 1 g IV load followed by 500 mg IV every 12 hours with trough Keppra level in a.m. and that the patient be transferred to a facility that is equipped with continuous video surface EEG monitoring to assess for any subclinical status epilepticus or subclinical seizures as well as to clarify the patient's reported clinical event witnessed by the fianc?, and EMS that brought the patient to the hospital in order to determine if the patient is experiencing true epileptic events versus nonepileptic events. In view of the patient's fianc? reported that patient experiences severe chest pressure associated with difficulty breathing prior to the onset of her seizure episodes, also recommend patient be evaluated by cardiology at the facility that she is being transferred to in order to rule out any underlying cardiac abnormalities. In view of the patient's reported history of depression, also recommend that she be seen by psychiatry at the facility that she will be transferred to. The above treatment plan was discussed was again discussed with the patient's fianc? who was outside in the parking lot with his mother. The family agreed with this plan. Past medical history: Seizure episodes, etiology unclear Mother of 2 children ages 10 and 4 years History of depression Drug allergies: No known drug allergy Past medications: Keppra for seizure episodes (according to the fianc? the patient has been noncompliant with all of her medications) A blood pressure medication (type unknown by the fianc?) Habits: The fianc? states the patient is an occasional social drinker but denied any other drug use Family history: Remarkable for a father who had a myocardial infarction. There is no family history of seizures or epilepsy or brain tumor Last menstrual period: Unknown, but serum test in the emergency room on 12/03/2022 was negative. Review of Systems General: Reports: ROS unobtainable due to endotracheal tube, ROS unobtainable due to medical condition and Other (Note: Since the patient is intubated review of systems not obtainable.) Const: Reports: fatigue Card: Reports: chest pain, syncope and other (Shortness of breath) Neuro: Reports: seizure-like activity Medications/Allergies Home Medications Medication Instructions Recorded Confirmed Last Taken Type folic acid 1 mg tablet 1 mg PO DAILY #30 tabs 12/07/19 12/03/22 Unknown Rx levetiracetam 500 mg tablet 500 mg PO BID #60 tabs 12/07/19 12/03/22 Unknown Rx multivitamin with folic acid 400 1 tab PO DAILY #30 tabs 12/07/19 12/03/22 Unknown Rx mcg tablet (Thera) thiamine mononitrate (vit B1) 100 100 mg PO DAILY #30 tabs 12/07/19 12/03/22 Unknown Rx mg tablet (Vitamin B-1 (mononitrate)) Allergies Allergy/AdvReac Type Severity Reaction Status Date / Time No Known Allergies Allergy Verified 11/16/19 17:39 Current Medications Generic Name Dose Route Start Last Admin Trade Name Ariq PRN Reason Stop Dose Admin Fentanyl 1,000 mcg/ Sodium 100 mls @ 0 mls/hr 12/03/22 16:15 12/03/22 16:16 Chloride IV 25 mcg/hr .Q0M GENESIS 2.5 mls/hr Administration Protocol Per Protocol Midazolam HCl 100 mg/ Sodium 100 mls @ 0 mls/hr 12/03/22 16:15 12/03/22 16:15 Chloride IV 3 mg/hr .Q0M GENESIS 3 mls/hr Administration Protocol Per Protocol PFSH Acute PFSH: Medical History No pertinent family history Surgical History No pertinent past surgical history Social History Smoking and tobacco status: unknown if ever smoked Vitals/I&O/Wt Last Vital Signs Temp 97.7 F 12/03/22 15:42 Pulse 111 H 12/03/22 15:50 Resp 16 12/03/22 17:29 BP 132/101 12/03/22 15:50 Pulse Ox 100 12/03/22 15:50 O2 Del Method Mechanical Ventilation 12/03/22 15:42 FiO2 35 12/03/22 17:29 Weight last 48 hrs Weight 140 lb Physical Exam Narrative: The patient is intubated and sedated on propofol, Versed and fentanyl intravenously. Pupils 3 mm and reactive to light and accommodation. There were no signs of any nystagmus or eye fluttering. Head atraumatic. Neck supple. Cranial nerves II through XII grossly intact without any obvious facial weakness. Motor examination reveals the patient to move all extremities spontaneously. There was no obvious focal weakness. Deep tendon reflexes 2+ and symmetrical plantar responses flexor bilaterally. There was no clonus. Sensory sensory examination intact to touch and patient moves extremities and her head and body to tactile stimulation. Throat could not be assessed secondary to intubation. Lungs clear. Heart regular rhythm and rate. Extremities were negative for clubbing or cyanosis or edema. Data 12/03/22 15:40 12/03/22 15:40 A&P Assessment and plan (1) Status epilepticus: (2) Seizure: (3) Syncope: Plan Assessment: 1. 27-year-old female with a reported history of seizure-like episodes for approximately for approximately 4-year and noncompliance with Keppra. The patient was witnessed by her fianc? to experience 3 clinical events preceded by the patient complaining of severe chest pressure and shortness of breath associated with loss of consciousness and apnea requiring the fianc? to perform CPR and 3 clinical events witnessed by EMS requiring intubation and medications for seizures prior to the patient being transferred to [facility] emergency room. In the emergency room the patient appears stable she was intubated but moving her extremities spontaneously. Since [facility] is not equipped with inpatient continuous video EEG monitoring, I recommend the patient have a noncontrast head CT and transfer to [facility] for further treatment. I also recommend the patient be evaluated by cardiology and psychiatry at the facility the patient will be transferred to an [facility]. 2. Reported episodes of chest pain with difficulty breathing and apnea witnessed by the fianc? 3. History of depression Plan: 1. Recommend patient be transferred to [facility] at a facility that is equipped to perform continuous video surface EEG monitoring in order to clarify the patient's reported clinical events and to assess for any subclinical seizure activity as well as to assist in determining if anticonvulsant medications are warranted and whether anticonvulsants should be continued 2. Recommend cardiac evaluation for patient's reported complaints of recurrent chest pressure and shortness of breath and reported apnea witnessed by the patient's fianc? 3. Recommend psychiatry evaluation for patient reported history of depression Consult Attestations Medical Necessity Statement: Neurology was consulted to evaluate patient with reported status epilepticus decreased level of consciousness and history of seizures Coding Level of Care Code 70376 Diagnoses Status epilepticus G40.901 Seizure R56.9 Syncope R55 Time Spent (min) 60
[2022-12-03] MEDS: midazolam 1 mg/mL INJ 2 mL 4 MG ×2 (17:49→17:50)
[2022-12-03 17:53] LABS: Add Urine Microscopic? NO; Charge for UA Resulting for Rev
[2022-12-03 18:26] LABS: Bilirubin Urine Neg (Negative); Blood Urine Neg (Negative); Glucose Urine UA Norm (Normal); Ketones Urine Negative (Negative); Leukocyte Esterase Urine Negative (Negative); Nitrate Urine Negative (Negative); Protein Urine Neg (Negative); Specific Gravity, Urine 1.015 (1.005-1.030); Urine Appearance SL Hazy (CLEAR); Urine Color Yellow (Yellow); Urobilinogen Urine Norm (Negative); pH Urine 6.5 (5-7)
--- NOTE | 2022-12-03 19:22 | PC.NURSE ---
THIS NURSE RESUMED CARE AT 1900. PATIENT ON SEVERAL MEDICATIONS AND IN SOFT-RESTRAINTS AT TIME OF ASSESSMENT. PATIENT SEDATED AND COMFORTABLE IN BED. SOFT FOAM WRIST RESTRAINTS CHECKED. PATIENT CIRCULATION INTACT.
[2022-12-03 19:32] LABS: Amphetamines Screen Urine Negative (Negative); Barbiturates Screen Urine Negative (Negative); Benzodiazepines Screen Urine Positive (Negative); Cocaine Screen Urine Negative (Negative); Opiate Screen Urine Negative (Negative); PCP Screen Urine Negative (Negative); THC Screen Urine Negative (Negative)
[2022-12-05 15:09] LABS: Levetiracetam Immunoassy <2.0 mcg/mL (6.0-46.0)
== END 2022-12-03 20:15 | disposition intermediate care facility (04) ==
PROVIDERS: Emergency Provider Emergency Medicine; PCP Nurse Practitioner Family
DX: G40.901 Epilepsy, unspecified, not intractable, with status epilepticus (principal)
CPT/HCPCS: 36600; 51702; 70450; 71045; 80053; 80177; 80306; 80307; 81003; 81025; 82803; 83605; 83735; 84443; 85025; 87070; 87205; 94002; 94799; 96365; 96375; 99285; 99291; J1953; J2250; J2704; J3010

== ENCOUNTER 2023-01-04 09:42 | Emergency (ER) | payer BC, MEDICAID, SELFPAY ==
[2023-01-04 09:46] VITALS: BP 135/85; PULSE 87; RESP 16; TEMP 36.8; O2SAT 96; BMI 24.9
--- NOTE | 2023-01-04 09:52 | XRR_ITS ---
PROCEDURE INFORMATION: Exam: XR Chest Exam date and time: 01/04/2023 9:59 AM Age: 27 years old Clinical indication: Cough and dyspnea; Patient HX: Seizure; Additional info: Dyspnea/cough TECHNIQUE: Imaging protocol: Radiologic exam of the chest. Views: 1 view. COMPARISON: CR (CHEST, ) 12/03/2022 4:28 PM FINDINGS: Lungs: Unremarkable. No consolidation. Pleural spaces: Unremarkable. No pleural effusion. No pneumothorax. Heart/Mediastinum: Unremarkable. No cardiomegaly. Bones/joints: Unremarkable. XR/XR chest 1V portable [id number] IMPRESSION: No acute findings.
--- NOTE | 2023-01-04 09:55 | ED_ITS ---
HPI - Seizure General: Chief Complaint: Seizure Stated Complaint: SEIZURES Time Seen by Provider: 01/04/23 09:45 Source: patient Mode of arrival: EMS History of Present Illness: HPI Narrative: 27-year-old female presents to the emergency room after several apparent seizures. There is some question as to whether the patient actually has seizures or these are conversion disorders. Last time she was here in November she did not maintain any medication she had previously been prescribed Keppra it still on her medicine list. She was transferred at that time to [place] because of the concern about the last CO2 seizures. Patient reports at this time the only medication that she is on is a Zoloft we do not have records from that outside facility at this time. This morning she was tired she fell had several seizures she did not strike her head she remembers some of the episode. She is awake and alert does not appear to be postictal at this time. She denies any chest pain or abdominal pain. She was given Versed in the field by EMS. MD complaint: possible seizure Onset (ago): minute(s) Description of Episode: loss of consciousness and tonic-clonic movement Witnessed: Yes - by Bystander Trauma: No Seizure History: Yes Place: Work Possible Precipitating Event: none Associated symptoms: Deny chest pain, chills, fever(s) or malaise Treatments prior to arrival: benzodiazepines Review of Systems Const: Denies: fever(s), chills, body aches, change in appetite, fatigue or malaise ENMT: Denies: throat pain, ear or mastoid pain, nasal discharge or nasal congestion Card: Denies: chest pain, edema, dyspnea on exertion or orthopnea Resp: Denies: dyspnea, productive cough or non-productive cough GI: Denies: abdominal pain, nausea, vomiting, hematemesis, coffee ground emesis, diarrhea, constipation, bloating, hematochezia or melena : Denies: flank pain, difficulty voiding, dysuria, urinary frequency or urinary urgency Skin/Breast: Denies: rash or pruritus PFSH ED PFSH: Medical History No pertinent family history Surgical History No pertinent past surgical history Social History Smoking and tobacco status: unknown if ever smoked Physical Exam Const: GENERAL APPEARANCE: cooperative and comfortable ORIENTATION/CONSCIOUSNESS: Yes awake, Yes oriented to person, Yes oriented to place and Yes oriented to time HENMT: COMMON NORMALS: normocephalic, atraumatic and hearing grossly normal bilaterally HEAD & SCALP: normocephalic and atraumatic Resp: COMMON NORMALS: normal respiratory effort, No retractions, No use of accessory muscles and clear to auscultation bilaterally AUSCULTATION: clear to auscultation bilaterally Cardio: COMMON NORMALS: regular rate, regular rhythm and No murmurs present (Cardio) RATE: regular rate RHYTHM: regular rhythm GI: COMMON NORMALS: Soft to palpation and No hepatosplenomegaly present AUSCULTATION: Yes normoactive bowel sounds PALPATION: Yes Soft to palpation, No Tenderness to palpation present (GI), No Guarding due to palpation present (GI) and Yes No hepatosplenomegaly present Extremity: COMMON NORMALS: normal to inspection, capillary refill normal, no clubbing, cyanosis or edema, no calf tenderness and no pedal edema Neuro: SENSORIUM/ORIENTATION: Yes oriented to person, Yes oriented to place and Yes oriented to time Skin: COMMON NORMALS: no rashes or lesions noted GENERAL SKIN EXAM: no rashes or lesions noted Course Vital Signs: Vital signs: Vital Signs Temperature 98.3 F 01/04/23 09:46 Pulse Rate 62 01/04/23 10:30 Respiratory Rate 17 01/04/23 10:30 Blood Pressure 135/85 01/04/23 10:30 Pulse Oximetry 98 01/04/23 10:30 Oxygen Delivery Me thod Room Air 01/04/23 09:46 MDM - Seizure MDM Narrative Medical decision making narrative: Patient has a history of conversion disorder was previously on Keppra was taken off of this after evaluation by neurology in [place] she is also only on Zoloft at this time. She is not postictal with these episodes we will discharge her home have her follow-up with her regular neurologist continue previously prescribed medications. Return if has problems. Lab Data 01/04/23 10:00 01/04/23 10:00 Labs: Radiology Impressions Chest X-Ray 01/04/23 09:52 IMPRESSION: No acute findings. Laboratory Results WBC 7.4 10^3/uL (4.0-10.0) 01/04/23 10:00 RBC 5.19 10^6/uL (4.1-5.3) 01/04/23 10:00 Hgb 15.1 g/dL (11.5-15.3) 01/04/23 10:00 Hct 46.6 % (37.0-47.0) 01/04/23 10:00 MCV 89.8 fl (81-99) 01/04/23 10:00 MCH 29.1 pg (28.0-34.0) 01/04/23 10:00 MCHC 32.4 g/dL (30.0-36.0) 01/04/23 10:00 RDW 12.1 % (12.1-15.1) 01/04/23 10:00 Plt Count 366 10^3/cmm (130-400) 01/04/23 10:00 MPV 9.6 fL (7.4-10.4) 01/04/23 10:00 Neut % (Auto) 39.5 % 01/04/23 10:00 Lymph % (Auto) 48.5 % 01/04/23 10:00 [place] % (Auto) 8.8 % 01/04/23 10:00 Eos % (Auto) 2.4 % 01/04/23 10:00 Baso % (Auto) 0.5 % 01/04/23 10:00 Neut # (Auto) 2.91 10^3/uL (1.8-7.7) 01/04/23 10:00 Lymph # (Auto) 3.6 10^3/uL (0.8-4.8) 01/04/23 10:00 [place] # (Auto) 0.7 10^3/uL (0.2-0.9) 01/04/23 10:00 Eos # (Auto) 0.2 10^3/uL (0.0-0.8) 01/04/23 10:00 Baso # (Auto) 0.0 10^3/uL (0.0-0.1) 01/04/23 10:00 Nucleated RBC % (auto) 0 % 01/04/23 10:00 Nucleated RBCs # 0.0 /100WBC 01/04/23 10:00 Sodium 136 mmol/L (136-145) 01/04/23 10:00 Potassium 3.8 mmol/L (3.5-5.1) 01/04/23 10:00 Chloride 99 mmol/L (98-107) 01/04/23 10:00 Carbon Dioxide 21 mmol/L (22-29) L 01/04/23 10:00 Anion Gap 19.8 (5-19) H 01/04/23 10:00 BUN 18 mg/dL (6-20) 01/04/23 10:00 Creatinine 0.7 mg/dL (0.5-0.9) 01/04/23 10:00 GFR Calculation 98.9 mL/min (90-130) 01/04/23 10:00 Glucose 89 mg/dL (65-115) 01/04/23 10:00 Calculated Osmolality 283 mOsm/kg (285-295) L 01/04/23 10:00 Lactic Acid 1.9 mmol/L (0.5-2.2) 01/04/23 10:00 Calcium 9.9 mg/dL (8.5-10.5) 01/04/23 10:00 Creatine Kinase 196 U/L (26-192) H 01/04/23 10:00 Discharge Plan Discharge Patient Disposition: Home Clinical Impression: Conversion disorder with seizures or convulsions Condition: Stable Prescriptions: Discontinued levetiracetam 500 mg Tablet 500 mg PO BID Qty: 60 0RF No Action folic acid 1 mg Tablet 1 mg PO DAILY Qty: 30 0RF thiamine mononitrate (vit B1) [Vitamin B-1 (mononitrate)] 100 mg Tablet 100 mg PO DAILY Qty: 30 0RF multivitamin with folic acid [Thera] 400 mcg Tablet 1 tab PO DAILY Qty: 30 0RF Discharge Orders: Discharge ED (Routine); Ordered 01/04/23 Ordered By: Lio Neff Referrals: Meenakshi Shelley FNP [Primary Care Provider] - Discharge Diet: Usual diet Discharge Activity: Resume usual activity Patient Instructions: Conversion Disorder (ED), Opioid Safety, Pain Management Coding Level of Care Code ED Sheriff for Lisa Lancaster
[2023-01-04 10:00] VITALS: BP 135/85; PULSE 68; RESP 18; O2SAT 96
[2023-01-04 10:30] VITALS: BP 135/85; PULSE 62; RESP 17; O2SAT 98
[2023-01-04 10:30] LABS: Basophils % 0.5 %; Eosinophils # 0.2 10^3/uL (0.0-0.8); Eosinophils % 2.4 %; Hematocrit 46.6 % (37.0-47.0); Hemoglobin 15.1 g/dL (11.5-15.3); Lymphocytes # 3.6 10^3/uL (0.8-4.8); Lymphocytes % 48.5 %; Mean Corpuscular HGB Conc 32.4 g/dL (30.0-36.0); Mean Corpuscular Hemoglobin 29.1 pg (28.0-34.0); Mean Corpuscular Volume 89.8 fl (81-99); Mean Platelet Volume 9.6 fL (7.4-10.4); Monocytes # 0.7 10^3/uL (0.2-0.9); Monocytes % 8.8 %; Neutrophils # 2.91 10^3/uL (1.8-7.7); Neutrophils % 39.5 %; Nucleated Red Blood Cells % 0 %; Platelet Count 366 10^3/cmm (130-400); Red Blood Count 5.19 10^6/uL (4.1-5.3); Red Cell Distribution Width 12.1 % (12.1-15.1); White Blood Count 7.4 10^3/uL (4.0-10.0)
[2023-01-04 10:58] LABS: Anion Gap 19.8 (5-19); Blood Urea Nitrogen 18 mg/dL (6-20); Calcium 9.9 mg/dL (8.5-10.5); Carbon Dioxide 21 mmol/L (22-29); Chloride 99 mmol/L (98-107); Creatine Phosphokinase 196 U/L (26-192); Glomerular Filtration Rate 98.9 mL/min (90-130); Glucose 89 mg/dL (65-115); Lactic Sepsis W/Reflex 1.9 mmol/L (0.5-2.2); Osmolality Calculated 283 mOsm/kg (285-295); Potassium 3.8 mmol/L (3.5-5.1); Sodium 136 mmol/L (136-145)
[2023-01-04 11:00] VITALS: BP 135/85; PULSE 60; RESP 16; O2SAT 98
[2023-01-04 11:30] VITALS: BP 135/85
[2023-01-04 11:46] VITALS: BP 135/85
== END 2023-01-04 11:48 | disposition home or self-care (01) ==
PROVIDERS: Emergency Provider Family Medicine; PCP Nurse Practitioner Family
DX: F44.5 Conversion disorder with seizures or convulsions (principal)
CPT/HCPCS: 71045; 80048; 82550; 83605; 85025; 99284

== ENCOUNTER 2023-10-08 03:15 | Emergency (ER) | payer BC, MEDICAID, SELFPAY ==
[2023-10-08] VITALS (14 sets, daily range): BP systolic 93–152; BP diastolic 65–99; PULSE 79–161; RESP 14–25; O2SAT 97–100; BMI 27.4
--- NOTE | 2023-10-08 03:19 | CTR_ITS ---
PROCEDURE INFORMATION: Exam: CT Head Without Contrast Exam date and time: 10/08/2023 5:00 AM Age: 28 years old Clinical indication: Injury or trauma; Blunt trauma (contusions or hematomas); Patient HX: EMS arrival for fall with head strike and seizure like activity. ETOH on board. TECHNIQUE: Imaging protocol: Computed tomography of the head without contrast. Radiation optimization: All CT scans at this facility use at least one of these dose optimization techniques: automated exposure control; mA and/or kV adjustment per patient size (includes targeted exams where dose is matched to clinical indication); or iterative reconstruction. COMPARISON: CT head wo con* [id number] 12/03/2022 5:18 PM RADIATION DOSE METRICS: Total DLP (mGy-cm): 1166.68 FINDINGS: Brain: There is no evidence of acute parenchymal hemorrhage, extra-axial collection, or acute infarction. There is no mass effect, midline shift, or downward herniation. Cerebral ventricles: No ventriculomegaly. Paranasal sinuses: Visualized sinuses are unremarkable. No fluid levels. Mastoid air cells: Visualized mastoid air cells are well aerated. Bones/joints: Unremarkable. No acute fracture. Soft tissues: Unremarkable. CT/CT head wo con* [id number] IMPRESSION: No acute intracranial abnormality.
--- NOTE | 2023-10-08 03:20 | W.ED.SEIZURE ---
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 She did hit her head when she had hit the ground patient given Versed by EMS patient's altered here and unable to get any history from her she is intoxicated and has Versed on board Seizure History: Yes Review of Systems General: Reports: ROS unobtainable due to mental status [facility] ED PFSH: Medical History No pertinent family history Surgical History No pertinent past surgical history Social History Smoking and tobacco/nicotine status: never used tobacco/nicotine Alcohol intake: never Substance/Drug Use: never Physical Exam Const: COMMON NORMALS: negative for patient oriented x3 HENMT: COMMON NORMALS: normocephalic and atraumatic HEAD & SCALP: normocephalic and atraumatic Neck/C-Spine: COMMON NORMALS: full ROM and supple Chest: COMMONS NORMALS: normal inspection of the chest and normal palpation of entire chest wall Resp: COMMON NORMALS: normal respiratory effort, No retractions, No use of accessory muscles and clear to auscultation bilaterally AUSCULTATION: clear to auscultation bilaterally Cardio: COMMON NORMALS: regular rate, regular rhythm and No murmurs present (Cardio) RATE: regular rate RHYTHM: regular rhythm GI: COMMON NORMALS: Normal to inspection, nondistended, normoactive bowel sounds present, Soft to palpation, non-tender and no masses PALPATION: Yes Soft to palpation Extremity: COMMON NORMALS: normal to inspection and full ROM Neuro: COMMON NORMALS: moves all extremities and no focal motor deficits; negative for patient oriented x3 Psych: COMMON NORMALS: negative for mental status grossly normal Skin: COMMON NORMALS: no rashes or lesions noted and no wounds GENERAL SKIN EXAM: no rashes or lesions noted Course Vital Signs: Vital signs: Vital Signs Pulse Rate 81 10/08/23 06:30 Respiratory Rate 16 10/08/23 06:30 Blood Pressure 136/85 10/08/23 06:30 Pulse Oximetry 98 10/08/23 06:30 Oxygen Delivery Me thod Room Air 10/08/23 06:30 MDM - Seizure MDM Narrative Medical decision making narrative: Patient presents here with alcohol intoxication she is also had pseudoseizures here she is now awake and alert stable for discharge at this time imaging here is normal Lab Data 10/08/23 03:23 10/08/23 03:23 Labs: Radiology Impressions Head CT 10/08/23 03:19 IMPRESSION: No acute intracranial abnormality. Laboratory Results WBC 10.07 10^3/uL (3.29-11.43) 10/08/23 03:23 RBC 4.36 10^6/uL (3.85-5.65) 10/08/23 03:23 Hgb 13.00 g/dL (11.27-16.99) 10/08/23 03:23 Hct 39.3 % (36-47) 10/08/23 03:23 MCV 90.1 fl (85-98) 10/08/23 03:23 MCH 29.8 pg (27-33) 10/08/23 03:23 MCHC 33.1 g/dL (30-55) 10/08/23 03:23 RDW 11.8 % (12.1-15.1) L 10/08/23 03:23 Plt Count 361 10^3/cmm (157-399) 10/08/23 03:23 MPV 9.0 fL (7.4-10.4) 10/08/23 03:23 Neut % (Auto) 59.6 % 10/08/23 03:23 Lymph % (Auto) 30.9 % 10/08/23 03:23 [place] % (Auto) 7.1 % 10/08/23 03:23 Eos % (Auto) 1.7 % 10/08/23 03:23 Baso % (Auto) 0.3 % 10/08/23 03:23 Neut # (Auto) 6.01 10^3/uL (1.8-7.7) 10/08/23 03:23 Lymph # (Auto) 3.1 10^3/uL (0.8-4.8) 10/08/23 03:23 [place] # (Auto) 0.7 10^3/uL (0.2-0.9) 10/08/23 03:23 Eos # (Auto) 0.2 10^3/uL (0.0-0.8) 10/08/23 03:23 Baso # (Auto) 0.0 10^3/uL (0.0-0.1) 10/08/23 03:23 Nucleated RBC % (auto) 0 % 10/08/23 03:23 Nucleated RBCs # 0.0 /100WBC 10/08/23 03:23 Sodium 144 mmol/L (136-145) 10/08/23 03:23 Potassium 3.8 mmol/L (3.5-5.1) 10/08/23 03:23 Chloride 105 mmol/L (98-107) 10/08/23 03:23 Carbon Dioxide 25 mmol/L (22-29) 10/08/23 03:23 Anion Gap 17.8 (5-19) 10/08/23 03:23 BUN 7 mg/dL (6-20) 10/08/23 03:23 Creatinine 0.7 mg/dL (0.5-0.9) 10/08/23 03:23 GFR Calculation 98.3 mL/min (90-130) 10/08/23 03:23 Glucose 90 mg/dL (65-115) 10/08/23 03:23 Calculated Osmolality 296 mOsm/kg (285-295) H 10/08/23 03:23 Calcium 8.8 mg/dL (8.5-10.5) 10/08/23 03:23 Total Bilirubin 0.3 mg/dL (0.15-1.2) 10/08/23 03:23 AST 24 U/L (0-32) 10/08/23 03:23 ALT 36 U/L (0-33) H 10/08/23 03:23 Alkaline Phosphatase 62 U/L (35-105) 10/08/23 03:23 Total Protein 8.0 g/dL (6.6-8.7) 10/08/23 03:23 Albumin 4.6 g/dL (3.5-5.2) 10/08/23 03:23 Globulin 3.4 g/dL (1.3-4.6) 10/08/23 03:23 HCG, Qual Negative (Negative) 10/08/23 03:43 Salicylates < 0.3 mg/dL (3-10) L 10/08/23 03:23 Urine Opiates Screen Negative ng/mL (Negative) 10/08/23 03:43 Acetaminophen < 5.0 ug/mL (10-30) L 10/08/23 03:23 Ur Barbiturates Screen Negative ng/mL (Negative) 10/08/23 03:43 Ur Phencyclidine Scrn Negative ng/mL (Negative) 10/08/23 03:43 Ur Amphetamines Screen Negative ng/mL (Negative) 10/08/23 03:43 U Benzodiazepines Scrn Negative ng/mL (Negative) 10/08/23 03:43 Urine Cocaine Screen Negative ng/mL (Negative) 10/08/23 03:43 U Marijuana (THC) Screen Negative ng/mL (Negative) 10/08/23 03:43 Ethyl Alcohol 141 mg/dL (0-10) H 10/08/23 03:23 All radiology interpretation(s) finalized by discharge Discharge Plan Discharge Patient Disposition: Home Clinical Impression: Alcohol intoxication, Psychogenic nonepileptic seizure Condition: Stable Prescriptions: No Action No Known Home Medications Discharge Orders: Discharge ED (Routine); Ordered 10/08/23 Ordered By: Yesenia Paz Referrals: Morelia Stevenson DO [Primary Care Provider] - Discharge Diet: Advance as tolerated Discharge Activity: Resume usual activity Patient Instructions: Alcohol Intoxication (ED) Coding Level of Care Code ED Field Service Representative for Lisa Lancaster
[2023-10-08] MEDS: sodium chloride 0.9% 1,000 ML 999 ML IV (03:29)
[2023-10-08] MEDS: levETIRAcetam 1,000 MG/100 ML PREMIX 400 MG IV (03:29)
[2023-10-08 03:30] LABS: Basophils % 0.3 %; Eosinophils # 0.2 10^3/uL (0.0-0.8); Eosinophils % 1.7 %; Hematocrit 39.3 % (36-47); Lymphocytes # 3.1 10^3/uL (0.8-4.8); Lymphocytes % 30.9 %; Mean Corpuscular HGB Conc 33.1 g/dL (30-55); Mean Corpuscular Hemoglobin 29.8 pg (27-33); Mean Corpuscular Volume 90.1 fl (85-98); Monocytes # 0.7 10^3/uL (0.2-0.9); Monocytes % 7.1 %; Neutrophils # 6.01 10^3/uL (1.8-7.7); Neutrophils % 59.6 %; Nucleated Red Blood Cells % 0 %; Platelet Count 361 10^3/cmm (157-399); Red Blood Count 4.36 10^6/uL (3.85-5.65); Red Cell Distribution Width 11.8 % (12.1-15.1); White Blood Count 10.07 10^3/uL (3.29-11.43)
[2023-10-08 03:48] LABS: Acetaminophen < 5.0 ug/mL (10-30); Alanine Aminotransferase 36 U/L (0-33); Albumin Level 4.6 g/dL (3.5-5.2); Alcohol Level 141 mg/dL (0-10); Alkaline Phosphatase 62 U/L (35-105); Anion Gap 17.8 (5-19); Aspartate Amino Transferase 24 U/L (0-32); Blood Urea Nitrogen 7 mg/dL (6-20); Calcium 8.8 mg/dL (8.5-10.5); Carbon Dioxide 25 mmol/L (22-29); Chloride 105 mmol/L (98-107); Creatinine Clr Calc Pharmacy 114.7416; Globulin 3.4 g/dL (1.3-4.6); Glomerular Filtration Rate 98.3 mL/min (90-130); Glucose 90 mg/dL (65-115); Osmolality Calculated 296 mOsm/kg (285-295); Potassium 3.8 mmol/L (3.5-5.1); Salicylate < 0.3 mg/dL (3-10); Sodium 144 mmol/L (136-145); Total Bilirubin 0.3 mg/dL (0.15-1.2)
[2023-10-08 03:52] LABS: HCG Qualitative Urine. Negative (Negative)
[2023-10-08 03:57] LABS: Amphetamines Screen Urine Negative (Negative); Barbiturates Screen Urine Negative (Negative); Benzodiazepines Screen Urine Negative (Negative); Cocaine Screen Urine Negative (Negative); Opiate Screen Urine Negative (Negative); PCP Screen Urine Negative (Negative); THC Screen Urine Negative (Negative)
--- NOTE | 2023-10-08 09:41 | PC.NURSE ---
Patient woke up and started pulling off telemetry leads, coban bandage from prior IV site, and said I want to go home. She requested nurse call her fiance Conrado Kenyon. Conrado arrives to take her home, she was able to ambulate to POV. He states after these episodes she always wakes up mean and angry.
== END 2023-10-08 09:44 | disposition home or self-care (01) ==
PROVIDERS: Emergency Provider Emergency Medicine; PCP Family Medicine
DX: R56.9 Unspecified convulsions (principal); F10.129 Alcohol abuse with intoxication, unspecified; Y90.6 Blood alcohol level of 120-199 mg/100 ml
CPT/HCPCS: 36415; 70450; 80053; 80306; 80307; 81025; 85025; 96374; 99285; J1953; J7030

== ENCOUNTER 2024-04-18 22:11 | Emergency (ER) | payer SELFPAY ==
[2024-04-18] VITALS (15 sets, daily range): BP systolic 102–130; BP diastolic 65–66; PULSE 90–110; RESP 18–20; TEMP 36.6; O2SAT 93–97; BMI 27.3
--- NOTE | 2024-04-18 22:17 | CTR_ITS ---
PROCEDURE INFORMATION: Exam: CT Head Without Contrast Exam date and time: 04/18/2024 11:14 PM Age: 28 years old Clinical indication: Other: Seizures TECHNIQUE: Imaging protocol: Computed tomography of the head without contrast. Radiation optimization: All CT scans at this facility use at least one of these dose optimization techniques: automated exposure control; mA and/or kV adjustment per patient size (includes targeted exams where dose is matched to clinical indication); or iterative reconstruction. COMPARISON: CT head wo con* [id number] 10/08/2023 5:00 AM RADIATION DOSE METRICS: Total DLP (mGy-cm): 1203.49 FINDINGS: Brain: No acute intracranial abnormality. No intracranial hemorrhage. No evidence of acute territorial infarct or cerebral edema. No mass effect or midline shift. Cerebral ventricles: There is a normal-variant cavum septum pellucidum. No hydrocephalus. Paranasal sinuses: Visualized paranasal sinuses are clear. Mastoid air cells: The mastoid air cells are clear. Bones: The calvarium is intact. Soft tissues: Soft tissues are unremarkable as visualized. CT/CT head wo con* [id number] IMPRESSION: No acute intracranial findings.
--- NOTE | 2024-04-18 22:23 | ECG_ITS ---
[facility] Test Date: 2024-04-18 Pat Name: Manju Morales Department: Room: Gender: Female Entry Level Account Executive: : 1995 Requested By: Darin Freedman Order Number: [id number] Chiki MD: Marifer Méndez M.D. Measurements Intervals [place] Rate: 98 P: 54 ME: 167 QRS: 34 QRSD: 89 T: 68 QT: 355 QTc: 454 Interpretive Statements SINUS RHYTHM POSSIBLE LEFT ATRIAL ENLARGEMENT [-0.1mV P-WAVE IN V1/V2] NONSPECIFIC T-WAVE ABNORMALITY Compared to ECG 02/15/2018 20:13:48 T-wave abnormality now present Sinus arrhythmia no longer present Electronically Signed On 04-19-2024 18:10:41 CDT by Marifer Méndez M.D. [email or web address]
[2024-04-18] MEDS: LORazepam 2 mg/mL INJ 1 mL IVP (22:27)
[2024-04-18 22:28] LABS: Basophils % 0.4 %; Eosinophils # 0.2 10^3/uL (0.0-0.8); Eosinophils % 2.6 %; Hematocrit 37.3 % (36-47); Lymphocytes # 2.6 10^3/uL (0.8-4.8); Lymphocytes % 36.5 %; Mean Corpuscular HGB Conc 33.5 g/dL (30-55); Mean Corpuscular Hemoglobin 29.8 pg (27-33); Mean Corpuscular Volume 88.8 fl (85-98); Mean Platelet Volume 9.1 fL (7.4-10.4); Monocytes # 0.5 10^3/uL (0.2-0.9); Monocytes % 6.4 %; Neutrophils % 53.8 %; Nucleated Red Blood Cells % 0 %; Platelet Count 326 10^3/cmm (157-399); Red Cell Distribution Width 12.1 % (12.1-15.1); White Blood Count 7.05 10^3/uL (3.29-11.43)
[2024-04-18 22:46] LABS: Alanine Aminotransferase 14 U/L (0-33); Albumin Level 4.2 g/dL (3.5-5.2); Alcohol Level 198 mg/dL (0-10); Alkaline Phosphatase 57 U/L (35-105); Anion Gap 18.6 (5-19); Aspartate Amino Transferase 16 U/L (0-32); Blood Urea Nitrogen 14 mg/dL (6-20); Calcium 8.5 mg/dL (8.5-10.5); Carbon Dioxide 22 mmol/L (22-29); Chloride 104 mmol/L (98-107); Creatinine Clr Calc Pharmacy 114.4047; Globulin 2.9 g/dL (1.3-4.6); Glomerular Filtration Rate 98.3 mL/min (90-130); Glucose 104 mg/dL (65-115); Osmolality Calculated 293 mOsm/kg (285-295); Potassium 3.6 mmol/L (3.5-5.1); Sodium 141 mmol/L (136-145); Total Bilirubin 0.2 mg/dL (0.15-1.2); Total Protein 7.1 g/dL (6.6-8.7)
[2024-04-18 22:48] LABS: Charge for UA Resulting for Rev
[2024-04-18 22:50] LABS: HCG Qualitative Urine. Negative (Negative)
[2024-04-18 22:52] LABS: Bilirubin Urine Negative (Negative); Blood Urine Negative (Negative); Glucose Urine UA Negative (Normal); Ketones Urine Negative (Negative); Leukocyte Esterase Urine Negative (Negative); Nitrate Urine Negative (Negative); Protein Urine Negative (Negative); Specific Gravity, Urine 1.004 (1.005-1.030); Urine Appearance Clear (CLEAR); Urine Color Yellow (Yellow); Urobilinogen Urine 0.2 mg/dL (Negative); pH Urine 5.5 (5-7)
[2024-04-18 22:57] LABS: Bacteria Urine None Seen /hpf; Hyaline Casts Urine 0-4 /lpf; RBC Urine 0-2 /hpf (0-2); Squamous Epithelial Cell Urine 0-5 /hpf (0-5); WBC Urine 0-5 /hpf (0-5)
[2024-04-18 22:59] LABS: Amphetamines Screen Urine Negative (Negative); Barbiturates Screen Urine Negative (Negative); Benzodiazepines Screen Urine Negative (Negative); Cocaine Screen Urine Negative (Negative); Opiate Screen Urine Negative (Negative); PCP Screen Urine Negative (Negative); THC Screen Urine Negative (Negative)
[2024-04-18] MEDS: levETIRAcetam 1,000 MG/100 ML PREMIX 400 MG IV (23:35)
[2024-04-19] VITALS (50 sets, daily range): BP systolic 87–133; BP diastolic 53–86; PULSE 74–107; RESP 10–19; O2SAT 94–98
--- NOTE | 2024-04-19 00:22 | ED_ITS ---
Documented by User: Darin Freedman MD 04/19/24 05:57 HPI - Seizure 2 General: Chief Complaint: Seizure Stated Complaint: Seizures Time Seen by Provider: 04/18/24 22:12 History of Present Illness: HPI Narrative: 28-year-old female presents emerged part with complaint of alcohol intoxication and seizures. She has a history of nonepileptic seizure disorder and has had seizure activity tonight after drinking alcohol. She did drink quite heavily tonight and this has happened to her before where she has become intoxicated and had seizure activity. Her workup in the past that showed that her seizure activities are nonepileptic. She did receive 7 mg of Versed by EMS prior to arrival. Seizure History: Yes Place: Home Related Data Home Medications Medication Instructions Recorded Confirmed No Known Home Medications 04/04/23 04/04/23 Allergies Allergy/AdvReac Type Severity Reaction Status Date / Time No Known Allergies Allergy Verified 04/04/23 09:52 PFSH ED 2 PFSH: Medical History No pertinent family history Surgical History No pertinent past surgical history Social History Smoking and tobacco/nicotine status: never used tobacco/nicotine Alcohol intake: never Substance/Drug Use: never Physical Exam 2 Const: COMMON NORMALS: no acute distress; negative for patient oriented x3 (Patient intoxicated and somnolent.) Neck/C-Spine: COMMON NORMALS: no JVD Resp: COMMON NORMALS: normal respiratory effort, No retractions, No use of accessory muscles, clear to auscultation bilaterally and percussion normal A USCULTATION: clear to auscultation bilaterally PERCUSSION: percussion normal Cardio: COMMON NORMALS: no JVD, regular rate, regular rhythm, S1 normal heart sound present, S2 normal heart sound present, No gallops present (Cardio), No clicks present (Cardio), No murmurs present (Cardio), No rub (Cardio) and Peripheral pulses 2+ throughout RATE: regular rate RHYTHM: regular rhythm HEART SOUNDS: S1 normal heart sound present and S2 normal heart sound present PERIPHERAL PULSES: Peripheral pulses 2+ throughout Neuro: COMMON NORMALS: negative for patient oriented x3 (Patient intoxicated and somnolent.) Course 2 Vital Signs: Vital signs: Vital Signs Temperature 97.9 F 04/18/24 22:12 Pulse Rate 88 04/19/24 08:09 Respiratory Rate 14 04/19/24 05:30 Blood Pressure 130/74 04/19/24 08:09 Pulse Oximetry 97 04/19/24 08:09 Oxygen Delivery Me thod Room Air 04/19/24 07:54 MDM - Seizure MDM Narrative Medical decision making narrative: 28-year-old female presents emerged part with complaint of alcohol intoxication and seizures. She has a history of nonepileptic seizure disorder and has had seizure activity tonight after drinking alcohol. She did drink quite heavily tonight and this has happened to her before where she has become intoxicated and had seizure activity. Her workup in the past that showed that her seizure activities are nonepileptic. She did receive 7 mg of Versed by EMS prior to arrival. Patient did receive 1 g of Keppra as well as 2 mg of Ativan as she did have 1 more seizure-like activity here. Patient initially unresponsive due to alcohol intoxication and likely because of Versed and Ativan. Patient was observed until no longer intoxicated and patient no longer having any seizure activity. Patient has no other significant abnormality noted on workup tonight. Head CT is negative. Labs show elevated alcohol level but no other significant abnormality. Patient advised to avoid alcohol and to follow-up with neurology. Lab Data 04/18/24 22:25 04/18/24 22:25 Labs: Radiology Impressions Head CT 04/18/24 22:17 IMPRESSION: No acute intracranial findings. Laboratory Results WBC 7.05 10^3/uL (3.29-11.43) 04/18/24 22:25 RBC 4.20 10^6/uL (3.85-5.65) 04/18/24 22:25 Hgb 12.50 g/dL (11.27-16.99) 04/18/24 22:25 Hct 37.3 % (36-47) 04/18/24 22:25 MCV 88.8 fl (85-98) 04/18/24 22:25 MCH 29.8 pg (27-33) 04/18/24 22: MCHC 33.5 g/dL (30-55) 04/18/24 22:25 RDW 12.1 % (12.1-15.1) 04/18/24: Plt Count 326 10^3/cmm (157-399) 04/18/24 22: MPV 9.1 fL (7.4-10.4) 04/18/24: Neut % (Auto) 53.8 % 04/18/24: Lymph % (Auto) 36.5 % 04/18/24: [place] % (Auto) 6.4 % 04/18/24 22: Eos % (Auto) 2.6 % 04/18/24 22: Baso % (Auto) 0.4 % 04/18/24: Neut # (Auto) 3.80 10^3/uL (1.8-7.7) 04/18/24: Lymph # (Auto) 2.6 10^3/uL (0.8-4.8) 04/18/24: [place] # (Auto) 0.5 10^3/uL (0.2-0.9) 04/18/24 22: Eos # (Auto) 0.2 10^3/uL (0.0-0.8) 04/18/24: Baso # (Auto) 0.0 10^3/uL (0.0-0.1) 04/18/24: Nucleated RBC % (auto) 0 % 04/18/24: Nucleated RBCs # 0.0 /100WBC 04/18/24 22: Sodium 141 mmol/L (136-145) 04/18/24 22: Potassium 3.6 mmol/L (3.5-5.1) 04/18/24 22: Chloride 104 mmol/L (98-107) 04/18/24 22: Carbon Dioxide 22 mmol/L (22-29) 04/18/24 22: Anion Gap 18.6 (5-19) 04/18/24 22:25 BUN 14 mg/dL (6-20) 04/18/24 22: Creatinine 0.7 mg/dL (0.5-0.9) 04/18/24 22: GFR Calculation 98.3 mL/min (90-130) 04/18/24 22:25 Glucose 104 mg/dL (65-115) 04/18/24 22:25 Calculated Osmolality 293 mOsm/kg (285-295) 04/18/24 22:25 Calcium 8.5 mg/dL (8.5-10.5) 04/18/24 22:25 Total Bilirubin 0.2 mg/dL (0.15-1.2) 04/18/24 22:25 AST 16 U/L (0-32) 04/18/24 22: ALT 14 U/L (0-33) 04/18/24 22:25 Alkaline Phosphatase 57 U/L (35-105) 04/18/24 22: Total Protein 7.1 g/dL (6.6-8.7) 04/18/24 22: Albumin 4.2 g/dL (3.5-5.2) 04/18/24 22: Globulin 2.9 g/dL (1.3-4.6) 04/18/24 22:25 HCG, Qual Negative (Negative) 04/18/24 22:45 Urine Color Yellow (Yellow) 04/18/24 22:45 Urine Appearance Clear (CLEAR) 04/18/24 22:45 Urine pH 5.5 (5-7) 04/18/24 22:45 Ur Specific [place] 1.004 (1.005-1.030) L 04/18/24 22:45 Urine Protein Negative (Negative) 04/18/24 22:45 Urine Glucose (UA) Negative (Normal) 04/18/24 22:45 Urine Ketones Negative (Negative) 04/18/24 22:45 Urine Blood Negative (Negative) 04/18/24 22:45 Urine Nitrate Negative (Negative) 04/18/24 22:45 Urine Bilirubin Negative (Negative) 04/18/24 22:45 Urine Urobilinogen 0.2 mg/dL (Negative) 04/18/24 22:45 Ur Leukocyte Esterase Negative (Negative) 04/18/24 22:45 Urine RBC 0-2 /hpf (0-2) 04/18/24 22:45 Urine WBC 0-5 /hpf (0-5) 04/18/24 22:45 Ur Squamous Epith Cells 0-5 /hpf (0-5) 04/18/24 22:45 Amorphous Sediment Not Reportable 04/18/24 22:45 Urine Bacteria None seen /hpf (NONE) 04/18/24 22:45 Hyaline Casts 0-4 /lpf H 04/18/24 22:45 Urine Opiates Screen Negative ng/mL (Negative) 04/18/24 22:45 Ur Barbiturates Screen Negative ng/mL (Negative) 04/18/24 22:45 Ur Phencyclidine Scrn Negative ng/mL (Negative) 04/18/24 22:45 Ur Amphetamines Screen Negative ng/mL (Negative) 04/18/24 22:45 U Benzodiazepines Scrn Negative ng/mL (Negative) 04/18/24 22:45 Urine Cocaine Screen Negative ng/mL (Negative) 04/18/24 22:45 U Marijuana (THC) Screen Negative ng/mL (Negative) 04/18/24 22:45 Ethyl Alcohol 198 mg/dL (0-10) H 04/18/24 22:25 No radiology studies performed this visit Discharge Plan Discharge Patient Disposition: Home Clinical Impression: Psychogenic nonepileptic seizure, Alcohol intoxication Condition: Stable Prescriptions: No Action No Known Home Medications Discharge Orders: Discharge ED (Routine); Ordered 04/19/24 Ordered By: Lio Neff Referrals: Morelia Stevenson DO [Primary Care Provider] - Discharge Diet: Usual diet Discharge Activity: Increase activity as tolerated Patient Instructions: Alcohol Intoxication (ED), Abuse of Alcohol (ED), Opioid Safety, Pain Management Activity Restrictions/Additional Instructions: Thank you for choosing [facility] for your healthcare needs today. It is very important that you follow up as instructed or that you return to the Emergency Department should you have concerns or if your condition changes or worsens in any way. Follow-up with your primary care provider Abstain from alcohol Sign Out Sign Out Data: Patient Sign Out occurred on 04/19/24 at 06:23. Patient's care was discussed, and care was transferred from Darin Freedman MD to Lio Neff DO. Coding Level of Care Code ED Cdc Associate for [facility] Documented by User: Lio Neff DO 04/19/24 08:29 HPI - Seizure 2 General: Chief Complaint: Seizure Stated Complaint: Seizures Time Seen by Provider: 04/18/24 22:12 Related Data Home Medications Medication Instructions Recorded Confirmed No Known Home Medications 04/04/23 04/04/23 Allergies Allergy/AdvReac Type Severity Reaction Status Date / Time No Known Allergies Allergy Verified 04/04/23 09:52 PFSH ED 2 PFSH: Medical History No pertinent family history Surgical History No pertinent past surgical history Social History Smoking and tobacco/nicotine status: never used tobacco/nicotine Alcohol intake: never Substance/Drug Use: never Course 2 Vital Signs: Vital signs: Vital Signs Temperature 97.9 F 04/18/24 22:12 Pulse Rate 88 04/19/24 08:09 Respiratory Rate 14 04/19/24 05:30 Blood Pressure 130/74 04/19/24 08:09 Pulse Oximetry 97 04/19/24 08:09 Oxygen Delivery Me thod Room Air 04/19/24 07:54 MDM - Seizure MDM Narrative Medical decision making narrative: 28-year-old female presents emerged part with complaint of alcohol intoxication and seizures. She has a history of nonepileptic seizure disorder and has had seizure activity tonight after drinking alcohol. She did drink quite heavily tonight and this has happened to her before where she has become intoxicated and had seizure activity. Her workup in the past that showed that her seizure activities are nonepileptic. She did receive 7 mg of Versed by EMS prior to arrival. Patient did receive 1 g of Keppra as well as 2 mg of Ativan as she did have 1 more seizure-like activity here. Patient initially unresponsive due to alcohol intoxication and likely because of Versed and Ativan. Patient was observed until no longer intoxicated and patient no longer having any seizure activity. Patient has no other significant abnormality noted on workup tonight. Head CT is negative. Labs show elevated alcohol level but no other significant abnormality. Patient advised to avoid alcohol and to follow-up with neurology. Care assumed at change of shift from Dr. Freedman. Discussed patient. Patient seen and examined. After time she is awake alert she does not recall what happened last night. She has been able to ambulate without difficulty. We contacted a friend. I reviewed her labs this morning. She can be safely discharged. She has a history of pseudoseizure disorder. Lab Data 04/18/24 22:25 04/18/24 22:25 Labs: Radiology Impressions Head CT 04/18/24 22:17 IMPRESSION: No acute intracranial findings. Laboratory Results WBC 7.05 10^3/uL (3.29-11.43) 04/18/24 22: RBC 4.20 10^6/uL (3.85-5.65) 04/18/24: Hgb 12.50 g/dL (11.27-16.99) 04/18/24: Hct 37.3 % (36-47) 04/18/24: MCV 88.8 fl (85-98) 04/18/24 22: MCH 29.8 pg (27-33) 04/18/24 22: MCHC 33.5 g/dL (30-55) 04/18/24 22: RDW 12.1 % (12.1-15.1) 04/18/24: Plt Count 326 10^3/cmm (157-399) 04/18/24 22: MPV 9.1 fL (7.4-10.4) 04/18/24 22: Neut % (Auto) 53.8 % 04/18/24 22: Lymph % (Auto) 36.5 % 04/18/24 22: [place] % (Auto) 6.4 % 04/18/24 22: Eos % (Auto) 2.6 % 04/18/24: Baso % (Auto) 0.4 % 04/18/24: Neut # (Auto) 3.80 10^3/uL (1.8-7.7) 04/18/24: Lymph # (Auto) 2.6 10^3/uL (0.8-4.8) 04/18/24: [place] # (Auto) 0.5 10^3/uL (0.2-0.9) 04/18/24 22:25 Eos # (Auto) 0.2 10^3/uL (0.0-0.8) 04/18/24 22:25 Baso # (Auto) 0.0 10^3/uL (0.0-0.1) 04/18/24 22:25 Nucleated RBC % (auto) 0 % 04/18/24 22:25 Nucleated RBCs # 0.0 /100WBC 04/18/24 22:25 Sodium 141 mmol/L (136-145) 04/18/24 22:25 Potassium 3.6 mmol/L (3.5-5.1) 04/18/24 22:25 Chloride 104 mmol/L (98-107) 04/18/24 22:25 Carbon Dioxide 22 mmol/L (22-29) 04/18/24 22:25 Anion Gap 18.6 (5-19) 04/18/24 22:25 BUN 14 mg/dL (6-20) 04/18/24 22: Creatinine 0.7 mg/dL (0.5-0.9) 04/18/24 22:25 GFR Calculation 98.3 mL/min (90-130) 04/18/24 22:25 Glucose 104 mg/dL (65-115) 04/18/24 22:25 Calculated Osmolality 293 mOsm/kg (285-295) 04/18/24 22:25 Calcium 8.5 mg/dL (8.5-10.5) 04/18/24 22:25 Total Bilirubin 0.2 mg/dL (0.15-1.2) 04/18/24 22:25 AST 16 U/L (0-32) 04/18/24 22:25 ALT 14 U/L (0-33) 04/18/24 22:25 Alkaline Phosphatase 57 U/L (35-105) 04/18/24 22:25 Total Protein 7.1 g/dL (6.6-8.7) 04/18/24 22:25 Albumin 4.2 g/dL (3.5-5.2) 04/18/24 22:25 Globulin 2.9 g/dL (1.3-4.6) 04/18/24 22:25 HCG, Qual Negative (Negative) 04/18/24 22:45 Urine Color Yellow (Yellow) 04/18/24 22:45 Urine Appearance Clear (CLEAR) 04/18/24 22:45 Urine pH 5.5 (5-7) 04/18/24 22:45 Ur Specific [place] 1.004 (1.005-1.030) L 04/18/24 22:45 Urine Protein Negative (Negative) 04/18/24 22:45 Urine Glucose (UA) Negative (Normal) 04/18/24 22:45 Urine Ketones Negative (Negative) 04/18/24 22:45 Urine Blood Negative (Negative) 04/18/24 22:45 Urine Nitrate Negative (Negative) 04/18/24 22:45 Urine Bilirubin Negative (Negative) 04/18/24 22:45 Urine Urobilinogen 0.2 mg/dL (Negative) 04/18/24 22:45 Ur Leukocyte Esterase Negative (Negative) 04/18/24 22:45 Urine RBC 0-2 /hpf (0-2) 04/18/24 22:45 Urine WBC 0-5 /hpf (0-5) 04/18/24 22:45 Ur Squamous Epith Cells 0-5 /hpf (0-5) 04/18/24 22:45 Amorphous Sediment Not Reportable 04/18/24 22:45 Urine Bacteria None seen /hpf (NONE) 04/18/24 22:45 Hyaline Casts 0-4 /lpf H 04/18/24 22:45 Urine Opiates Screen Negative ng/mL (Negative) 04/18/24 22:45 Ur Barbiturates Screen Negative ng/mL (Negative) 04/18/24 22:45 Ur Phencyclidine Scrn Negative ng/mL (Negative) 04/18/24 22:45 Ur Amphetamines Screen Negative ng/mL (Negative) 04/18/24 22:45 U Benzodiazepines Scrn Negative ng/mL (Negative) 04/18/24 22:45 Urine Cocaine Screen Negative ng/mL (Negative) 04/18/24 22:45 U Marijuana (THC) Screen Negative ng/mL (Negative) 04/18/24 22:45 Ethyl Alcohol 198 mg/dL (0-10) H 04/18/24 22:25 Discharge Plan Discharge Patient Disposition: Home Clinical Impression: Psychogenic nonepileptic seizure, Alcohol intoxication Condition: Stable Prescriptions: No Action No Known Home Medications Discharge Orders: Discharge ED (Routine); Ordered 04/19/24 Ordered By: Lio Neff Referrals: Morelia Stevenson DO [Primary Care Provider] - Discharge Diet: Usual diet Discharge Activity: Increase activity as tolerated Patient Instructions: Alcohol Intoxication (ED), Abuse of Alcohol (ED), Opioid Safety, Pain Management Activity Restrictions/Additional Instructions: Thank you for choosing [facility] for your healthcare needs today. It is very important that you follow up as instructed or that you return to the Emergency Department should you have concerns or if your condition changes or worsens in any way. Follow-up with your primary care provider Abstain from alcohol Sign Out Sign Out Data: Patient Sign Out occurred on 04/19/24 at 06:23. Patient's care was discussed, and care was transferred from Darin Freedman MD to Lio Neff DO. Coding Level of Care Code ED Cdc Associate for Lisa [place]
--- NOTE | 2024-04-19 07:08 | PC.NURSE ---
ASSUMED CARE OF PT AT 0700 FROM [facility].
== END 2024-04-19 08:10 | disposition home or self-care (01) ==
PROVIDERS: Emergency Medicine; Emergency Provider Family Medicine; PCP Family Medicine
DX: R56.9 Unspecified convulsions (principal); F10.129 Alcohol abuse with intoxication, unspecified; Y90.6 Blood alcohol level of 120-199 mg/100 ml
CPT/HCPCS: 70450; 80053; 80306; 80307; 81003; 81015; 81025; 85025; 93005; 96365; 99285; J1953; J2060